=== PATIENT | female | born 1985 | race Caucasian/White ===

== ENCOUNTER 2017-09-14 04:46 | Emergency (ER) | payer OTHER, MEDICAID, SELFPAY ==
--- NOTE | 2017-09-14 04:54 | DI.RAD.S_ITS ---
PROCEDURE: XR CHEST 2V INDICATIONS: Shortness of breath TECHNIQUE: 2 views of the chest were acquired. COMPARISON: None. FINDINGS: Surgical changes and devices: None. Lungs and pleura: No pleural effusions or pneumothorax. Bilateral prominent perihilar interstitial pulmonary opacities. Mediastinum: Mediastinal contours are normal. Heart size is normal. Bones and chest wall: No suspicious bony abnormalities. Soft tissues appear unremarkable. IMPRESSION: Bilateral predominately perihilar interstitial pulmonary opacities may represent infection or edema. No enlargement of the heart or pleural effusions. Dictated by: Rommel Horne M.D. on 09/14/2017 at 7:36 Approved by: Rommel Horne M.D. on 09/14/2017 at 7:37
[2017-09-14 04:55] VITALS: BP 134/91; PULSE 120; RESP 20; TEMP 36.7; O2SAT 96
[2017-09-14] MEDS: DEXAMETHASONE 10 MG/ML VIAL PO (05:26)
--- NOTE | 2017-09-14 05:26 | ED.SOB ---
HPI - SOB/Dyspnea General Chief Complaint: Shortness of Breath/Dyspnea Stated Complaint: Difficulty breathing since yesterday Time Seen by Provider: 09/14/17 04:48 Source: patient Mode of arrival: ambulatory Limitations: no limitations History of Present Illness 32-year-old female here of shortness of breath. Patient states that approximately 1 o'clock yesterday afternoon (approximately 18 hr prior to her evaluation here in the emergency department) she started having shortness of breath. She states she can take a deep breath but when she does this she coughs. She states that it ???hurts ???to take a deep breath. She states she has had issues like this in the past when she has been around cleaning chemicals. 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 She also states that she has a history of allergies however this year it has been watery and itchy eyes. She does take occasional Benadryl. Patient also states that she has a history of anxiety and panic attacks and she does state that this feels like a panic attack however did not think that that is what was going on because it has lasted so long. Related Data Previous Rx's Medication Instructions Recorded albuterol sulfate 1 puff INHALATION Q4-6H PRN #6.7 09/14/17 gram dexamethasone 12 mg PO .x1 #3 tab 09/14/17 Allergies Allergy/AdvReac Type Severity Reaction Status Date / Time Penicillins [PENICILLINS] Allergy Unknown Verified 09/09/17 11:31 Sulfa (Sulfonamide Allergy Unknown Verified 09/09/17 11:31 Antibiotics) [SULFA (SULFONAMIDE ANTIBIOTICS)] Review of Systems Constitutional Denies chills, Denies fever(s), Denies lethargy and Denies weakness Cardiovascular Denies chest pain, Denies irregular heart rhythm, Denies lightheadedness, Denies palpitations, Reports dyspnea, Denies dyspnea on exertion and Denies orthopnea Respiratory Reports cough, Denies excessive phlegm production, Reports pain on inspiration, Reports pain with cough, Reports dyspnea, Denies dyspnea on exertion, Denies stridor and Denies wheezing Gastrointestinal Gastrointestinal: Denies abdominal pain, Denies change in bowel habits, Denies diarrhea, Denies nausea and Denies vomiting Musculoskeletal Denies back pain, Denies muscle weakness, Denies numbness and Denies tingling Integumentary/Breasts Denies pruritus, Denies erythema, Denies rash and Denies wounds Neurologic Denies numbness, Denies tingling and Denies weakness Endocrine Denies palpitations Hematologic/Lymphatic Denies easy bruising Allergic/Immunologic Denies wheezing [facility] Surgical History Status post delivery Status post tubal ligation Social History Smoking Status: Current every day smoker MDM - SOB/Dyspnea MDM Narrative Medical decision making narrative: Patient is not hypoxic. However was in a very mild respiratory distress and after talking with the patient seen that she had quite a bit of anxiety related to her presenting symptoms. She was given a nebulizer treatment here in the ER which she says may have improved her symptoms somewhat. She was also given Decadron. Also gave her an oral Ativan which she states did calm her down quite a bit and did improve the majority of her symptoms. Heart rate improved. No signs of pneumonia. Will send home with an albuterol inhaler and a prescription for Decadron to taken 36 hr. She was given return precautions. She expressed understanding and agreement with plan Imaging Data Chest x-ray: My impression: Normal size heart No focal consolidation No pneumothorax Course Orders Ordered: ED Orders 09/14/17 04:54 XR chest 2V Stat Discontinued Medications Albuterol (Ventolin) 2.5 mg INH NOW ONE Stop: 09/14/17 05:17 Last Admin: 09/14/17 05:29 Dose: 2.5 mg Dexamethasone (Decadron) 10 mg PO NOW ONE Stop: 09/14/17 05:17 Last Admin: 09/14/17 05:26 Dose: 10 mg Lorazepam (Ativan) 1 mg PO NOW ONE Stop: 09/14/17 05:17 Lorazepam (Ativan) 0.5 mg PO NOW ONE Stop: 09/14/17 05:31 Last Admin: 09/14/17 05:36 Dose: 0.5 mg Lorazepam (Ativan) 0.5 mg PO NOW ONE Stop: 09/14/17 05:34 Last Admin: 09/14/17 05:36 Dose: 0.5 mg Last Vital Signs Temp 98.1 F 09/14/17 04:55 Pulse 84 09/14/17 06:24 Resp 16 09/14/17 06:24 BP 134/91 H 09/14/17 04:55 Pulse Ox 96 09/14/17 06:24 Discharge Plan Departure Patient Disposition: Home, Self-Care Clinical Impression: Mild shortness of breath Instructions: DI for Shortness of Breath Activity Restrictions/Additional Instructions: Take all the medications as instructed. Contact your primary care doctor for a follow-up. Return to the emergency department for any new or worsening symptoms Prescriptions: New dexamethasone 4 mg tablet 12 mg PO .x1 Qty: 3 RF: 0 albuterol sulfate 90 mcg/actuation HFA aerosol inhaler 1 puff INHALATION Q4-6H PRN (Reason: shortness of breath) Qty: 6.7 RF: 0
[2017-09-14] MEDS: ALBUTEROL 2.5 MG/3 ML NEB INH (05:29)
[2017-09-14] MEDS: LORazepam 0.5 MG TABLET PO ×2 (05:36)
[2017-09-14 06:24] VITALS: PULSE 84; RESP 16; O2SAT 96
[2017-09-14 06:44] VITALS: BP 138/88; PULSE 92; RESP 18; O2SAT 98
== END 2017-09-14 06:44 | disposition home or self-care (01) ==
PROVIDERS: Emergency Provider Emergency Medicine
DX: R06.02 Shortness of breath (principal)
CPT/HCPCS: 71046; 94640; 99282; 99283; J1100; J7613

== ENCOUNTER 2017-09-17 12:19 | Emergency (ER) | payer OTHER, MEDICAID, SELFPAY ==
--- NOTE | 2017-09-17 12:26 | ED.ABDPAIN ---
HPI - Abdominal Pain General Chief Complaint: Neuro Symptoms/Deficit Stated Complaint: feeling faint, trouble breathing Time Seen by Provider: 09/17/17 12:23 Source: patient Mode of arrival: ambulatory Limitations: no limitations History of Present Illness HPI narrative: 32-year-old female here for evaluation of which she describes as her head feeling foggy. Patient states that yesterday she started having feeling like the left side of her head was ???shutting down??? she was seen here in the emergency department several days ago by myself for respiratory symptoms and was sent home with Decadron and an albuterol inhaler. She states that all of these symptoms have resolved. She states that she did take the 2nd dose of Decadron on Saturday evening. Her presenting symptoms today started yesterday. She denies any headaches. Denies any other neurologic symptoms to include upper and lower extremity symptoms. Denies any nausea vomiting. States she does have a history of headaches does not have a headache now. Denies any other new medications. Related Data Home Medications Medication Instructions Recorded Confirmed inhalational spacing device 09/17/17 09/17/17 [Aerochamber Plus Flow-Vu] Previous Rx's Medication Instructions Recorded albuterol sulfate 1 puff INHALATION Q4-6H PRN #6.7 09/14/17 gram Allergies Allergy/AdvReac Type Severity Reaction Status Date / Time Penicillins [PENICILLINS] Allergy Unknown Verified 09/09/17 11:31 Sulfa (Sulfonamide Allergy Unknown Verified 09/09/17 11:31 Antibiotics) [SULFA (SULFONAMIDE ANTIBIOTICS)] Review of Systems Constitutional Denies chills, Denies fever(s), Denies lethargy and Denies weakness Eyes Denies change in vision, Denies eye discharge, Denies irritation and Denies loss of vision Cardiovascular Denies chest pain, Denies irregular heart rhythm, Denies lightheadedness, Denies palpitations, Denies dyspnea, Denies dyspnea on exertion and Denies orthopnea Respiratory Denies cough, Denies dyspnea, Denies dyspnea on exertion and Denies wheezing Musculoskeletal Denies back pain, Denies muscle weakness, Denies numbness and Denies tingling Integumentary/Breasts Denies pruritus, Denies erythema, Denies rash and Denies wounds Neurologic Denies loss of vision, Denies numbness, Denies tingling and Denies weakness Endocrine Denies palpitations Allergic/Immunologic Denies wheezing PFSH Social History Smoking Status: Current every day smoker Exam Const General: cooperative and well developed Nutritional Appearance: well nourished Orientation: alert, awake, oriented x3 and not confused [facility] Head: normocephalic and atraumatic Ears: external ears normal and TM's normal bilaterally Nose: external nose normal and No nasal discharge Face and sinus: sinuses nontender, face symmetric, no sinus tenderness and No dry mucous membranes Mouth: oral mucosae normal and moist mucous membranes Teeth and gingiva: dentition normal Throat: tonsils normal and uvula midline Eyes General: appearance normal, both eyes and all related structures Eyelids: eyelids normal Conjunctivae: conjunctivae normal Sclera: sclerae normal Pupils: PERRL EOM: EOM intact bilaterally Cardio Rate: regular rate Rhythm: regular rhythm Heart Sounds: no click, no gallops, no murmurs and no rubs Pulses: normal peripheral pulses GI Inspection: non-distended Palpation: soft, no hepatosplenomegaly, No guarding, No pulsatile mass and No tender Auscultation: normal bowel sounds Skin General: no rashes or lesions noted, No jaundice and No petechiae Neuro General: alert, oriented x3, gait normal and no focal motor deficits Cranial Nerves: CN's II-XI intact bilaterally Speech: speech normal Motor: strength 5/5 throughout Sensory Exam: no sensory deficits noted Extrem General: full ROM, no clubbing, cyanosis or edema, no pedal edema and no calf tenderness Course Orders Ordered: ED Orders 09/17/17 12:30 CT head/brain wo con Stat Last Vital Signs Temp 98.2 F 09/17/17 12:33 Pulse 58 L 09/17/17 12:33 Resp 20 09/17/17 12:33 BP 141/96 H 09/17/17 12:33 Pulse Ox 99 09/17/17 12:33 MDM - Abdominal Pain MDM Narrative Medical decision making narrative: Head CT negative. Patient with a normal neurologic exam here in the ER. No objective findings found on exam. I have some suspicion that her symptoms today may be the result of the Decadron that she took Saturday night. This should be wearing off within the next 12 hr. Will hold on any further workup for now. Again had a discussion with the patient that she needed to find a primary care doctor for a follow-up in to discuss further evaluation to potentially include an MRI. She expressed understanding and agreement with plan Imaging Data CT scan - head: Radiologist's impression: PROCEDURE: CT HEAD/BRAIN WO CON INDICATIONS: Head feels foggy TECHNIQUE: Noncontrast 4.5 mm thick angled axial sections acquired from the foramen magnum to the vertex, with coronal and sagittal reformats. For radiation dose reduction, the following was used: automated exposure control, adjustment of mA and/or kV according to patient size. COMPARISON: None. FINDINGS: Image quality: Excellent. CSF spaces: Basal cisterns are patent. No extra-axial fluid collections. Ventricles are normal in size and shape. Brain: No midline shift. No intracranial masses or hemorrhage. Wood-white matter interface is normal. Skull and face: Calvarium and visualized facial bones are intact, without suspicious lesions. Sinuses: Visualized sinuses and mastoids are clear. IMPRESSION: Unremarkable head CT. No acute intracranial hemorrhage. Dictated by: Rafy Huggins M.D. on 09/17/2017 at 11:46 Discharge Plan Departure Patient Disposition: Home, Self-Care Clinical Impression: Normal physical exam Activity Restrictions/Additional Instructions: Recommend that you make contact with the primary care doctor for follow-up to discuss further workup of her symptoms today. Return to the emergency department for any new or worsening symptoms Prescriptions: No Action inhalational spacing device [Aerochamber Plus Flow-Vu] spacer RF: 0 albuterol sulfate 90 mcg/actuation HFA aerosol inhaler 1 puff INHALATION Q4-6H PRN (Reason: shortness of breath) Qty: 6.7 RF: 0
--- NOTE | 2017-09-17 12:30 | DI.CT.S_ITS ---
PROCEDURE: CT HEAD/BRAIN WO CON INDICATIONS: Head feels foggy TECHNIQUE: Noncontrast 4.5 mm thick angled axial sections acquired from the foramen magnum to the vertex, with coronal and sagittal reformats. For radiation dose reduction, the following was used: automated exposure control, adjustment of mA and/or kV according to patient size. COMPARISON: None. FINDINGS: Image quality: Excellent. CSF spaces: Basal cisterns are patent. No extra-axial fluid collections. Ventricles are normal in size and shape. Brain: No midline shift. No intracranial masses or hemorrhage. Wood-white matter interface is normal. Skull and face: Calvarium and visualized facial bones are intact, without suspicious lesions. Sinuses: Visualized sinuses and mastoids are clear. IMPRESSION: Unremarkable head CT. No acute intracranial hemorrhage. Dictated by: Rafy Huggins M.D. on 09/17/2017 at 11:46 Approved by: Rafy Huggins M.D. on 09/17/2017 at 11:47
[2017-09-17 12:33] VITALS: BP 141/96; PULSE 58; RESP 20; TEMP 36.8; O2SAT 99; BMI 32.6
[2017-09-17 14:18] VITALS: BP 126/91; PULSE 58; RESP 12; O2SAT 100
== END 2017-09-17 14:23 | disposition home or self-care (01) ==
PROVIDERS: Emergency Provider Emergency Medicine
DX: Z71.1 Person with feared health complaint in whom no diagnosis is made (principal)
CPT/HCPCS: 70450; 99282; 99284; 99291

== ENCOUNTER 2017-10-11 16:02 | Emergency (ER) | payer OTHER, MEDICAID, SELFPAY ==
[2017-10-11 16:09] VITALS: BP 158/100; PULSE 90; RESP 20; TEMP 36.9; O2SAT 100; BMI 32.6
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
[2017-10-11] MEDS: CYCLOBENZAPRINE 10 MG TABLET PO (16:59)
[2017-10-11] MEDS: IBUPROFEN 400 MG TABLET 800 MG PO (16:59)
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
[2017-10-11 17:51] VITALS: BP 145/99; PULSE 79; RESP 14; O2SAT 100
== END 2017-10-11 17:52 | disposition home or self-care (01) ==
PROVIDERS: Emergency Provider Internal Medicine
DX: S16.1XXA Strain of muscle, fascia and tendon at neck level, initial encounter (principal); S00.93XA Contusion of unspecified part of head, initial encounter; S60.222A Contusion of left hand, initial encounter; V49.40XA Driver injured in collision with unspecified motor vehicles in traffic accident, initial encounter
CPT/HCPCS: 99283

== ENCOUNTER → 2017-10-23 16:18 | Outpatient (CLI) | payer OTHER, MEDICAID, SELFPAY ==
--- NOTE | 2017-10-23 16:28 | DI.RAD.S_ITS ---
PROCEDURE: XR CERVICAL SPINE 2V OR 3V INDICATIONS: SPRAIN OF LIGAMENTS OF CERVICAL SPINE TECHNIQUE: 3 view(s) of the cervical spine were acquired. COMPARISON: None. FINDINGS: Bones: No fractures or dislocations to the T1 level. The lateral masses of C1 appear intact on the odontoid view. No suspicious bony lesions. Loss of lordosis which could be related to muscle spasm, rigidity or simply positional. Soft tissues: No prevertebral soft tissue swelling. IMPRESSION: Loss of lordosis otherwise normal C-spine. Dictated by: Maxi Mejia [facility] Interpreted: Kira Davis MD on 10/23/2017 at 16:49 Approved by: Kira Davis MD, PhD on 10/23/2017 at 16:56
== END ==
PROVIDERS: Visit Provider Chiropractor
DX: S13.4XXA Sprain of ligaments of cervical spine, initial encounter (principal)
CPT/HCPCS: 72040

== ENCOUNTER → 2017-11-26 11:29 | Outpatient (CLI) | payer OTHER, MEDICAID, SELFPAY ==
[2017-11-26 12:30] LABS: Add Manual Diff / Slide Review NO; Eosinophils Percent Auto 2.7 % (2-4); Hematocrit 44.9 % (36-46); Hemoglobin 15.8 g/dL (12.0-16.0); Lymphocytes Percent Auto 27.4 % (25-40); Mean Corpuscular HGB Conc 35.1 % (30-36); Mean Corpuscular Hemoglobin 32.3 PG (26-34); Mean Corpuscular Volume 91.9 fL (80-100); Neutrophils Absolute Auto 4700 /uL (3000-5900); Neutrophils Percent Auto 62.9 % (50-75); Platelet Count 205 X10^3/uL (150-400); Red Blood Cell Count 4.89 X10^6/uL (4.0-5.2); Red Cell Distribution Width 13.3 % (11.6-14.8); White Blood Cell Count 7.4 X10^3/uL (4.5-11.0)
[2017-11-26 13:00] LABS: Alanine Aminotransferase 30 IU/L (9-52); Albumin 4.3 g/dL (3.5-5.0); Albumin Globulin Ratio 1.4 (1.0-2.8); Alkaline Phosphatase 85 U/L (38-126); Aspartate Aminotransferase 28 IU/L (14-36); BUN Creatinine Ratio 17.1 (6-22); Bilirubin Total 0.6 mg/dL (0.2-1.3); Blood Urea Nitrogen 12 mg/dL (7-17); C-Reactive Protein Quant 0.8 mg/dL (<1.0); Calcium 9.1 mg/dL (8.4-10.2); Carbon Dioxide 26 mmol/L (22-32); Chloride 104 mmol/L (98-107); Cholesterol 170 mg/dL (140-199); Estimated Glomerular Filt Rate > 60.0 mL/min (>60); Glucose 90 mg/dL (70-100); HDL Cholesterol 44 mg/dL (40-60); HEMOLYSIS < 15 (0-50); LDL Cholesterol Calculated 99 mg/dL (<100); Lipase 36 U/L (23-300); Sodium 139 mmol/L (137-145); Total Protein 7.3 g/dL (6.3-8.2); Triglycerides 137 mg/dL (35-150)
[2017-11-26 13:11] LABS: HEMOLYSIS < 15 (0-50); Iron 100 ug/dL (37-170)
[2017-11-26 13:16] LABS: Free T4, Direct Thyroxine 1.11 ng/dL (0.78-2.19)
[2017-11-26 13:22] LABS: Percent Iron Saturation 27 % (15-50); Total Iron Binding Capacity 373 ug/dL (265-497); Transferrin 308 mg/dL (206-381)
[2017-11-26 13:30] LABS: Thyroid Stimulating Hormone 2.18 uIU/mL (0.47-4.68)
[2017-11-26 13:34] LABS: Erythrocyte Sedimentation Rate 2 MM/HR (0-20)
[2017-11-26 13:44] LABS: Vitamin B12 359 pg/mL (239-931)
[2017-11-26 15:07] LABS: Vitamin D 25 Hydroxy (D3) 28.2 ng/mL (30.0-100.0)
== END ==
PROVIDERS: PCP Nurse Practitioner Family; Visit Provider Nurse Practitioner Family
DX: R19.7 Diarrhea, unspecified (principal); R10.9 Unspecified abdominal pain; R53.83 Other fatigue; L65.9 Nonscarring hair loss, unspecified; E28.2 Polycystic ovarian syndrome
CPT/HCPCS: 36415; 80053; 80061; 82306; 82607; 83540; 83550; 83690; 84439; 84443; 85025; 85651; 86140

== ENCOUNTER 2017-12-18 10:39 | Emergency (ER) | payer OTHER, MEDICAID, SELFPAY ==
[2017-12-18 10:48] VITALS: BP 186/109; PULSE 92; RESP 20; TEMP 37.2; O2SAT 100
--- NOTE | 2017-12-18 11:14 | ED_ITS ---
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 She was getting a routine I would check and blood pressure noted to be 168 systolic in the office, she was sent here as the result. She does have a history of elevated blood pressure but is not prescribed any medications. She does admit to a headache but denies any blurred vision, worse than normal, chest pain, shortness of breath, abdominal pain or other symptoms such as numbness, tingling or weakness. Related Data Home Medications Medication Instructions Recorded Confirmed inhalational spacing device 09/17/17 12/18/17 [Aerochamber Plus Flow-Vu] ergocalciferol (vitamin D2) 1 cap PO MOTH 12/18/17 12/18/17 [Vitamin D2] Previous Rx's Medication Instructions Recorded albuterol sulfate 1 puff INHALATION Q4-6H PRN #6.7 09/14/17 gram lisinopril 20 mg PO DAILY #30 tab 12/18/17 Allergies Allergy/AdvReac Type Severity Reaction Status Date / Time Penicillins [PENICILLINS] Allergy Unknown Hives Verified 10/11/17 16:15 Sulfa (Sulfonamide Allergy Unknown Hives Verified 10/11/17 16:15 Antibiotics) [SULFA (SULFONAMIDE ANTIBIOTICS)] Review of Systems Review of Systems All systems reviewed & are unremarkable except as noted in HPI and below Constitutional Denies chills, Denies fever(s), Reports headache(s), Denies lethargy and Denies weakness Eyes Denies change in vision, Denies eye discharge, Denies irritation and Denies loss of vision ENT Ears, Nose, Mouth, and Throat: Denies change in voice, Reports headache(s), Denies neck pain and Denies sore throat Cardiovascular Denies chest pain, Denies irregular heart rhythm, Denies lightheadedness, Denies palpitations, Denies dyspnea, Denies dyspnea on exertion and Denies orthopnea Respiratory Denies cough, Denies dyspnea, Denies dyspnea on exertion and Denies wheezing Gastrointestinal Gastrointestinal: Denies abdominal pain, Denies change in bowel habits, Denies diarrhea, Denies nausea and Denies vomiting Genitourinary Denies hematuria, Denies flank pain, Denies urinary incontinence and Denies urinary urgency Musculoskeletal Denies neck pain Integumentary/Breasts Denies pruritus, Denies erythema, Denies rash and Denies wounds Neurologic Denies confusion, Reports headache(s), Denies loss of vision and Denies weakness Psychiatric Denies anxiety, Denies confusion, Denies depression, Denies homicidal ideation and Denies suicidal ideation Endocrine Denies palpitations Hematologic/Lymphatic Denies easy bruising Allergic/Immunologic Denies wheezing [facility] Medical History Asthma (Chronic) History of renal stone (Chronic) Surgical History History of extraction of renal calculus (Resolved) Status post delivery Status post tubal ligation Social History Smoking Status: Current every day smoker Exam Initial Vital Signs Initial Vital Signs: Vital Signs Temperature 99 F 12/18/17 10:48 Pulse Rate 92 H 12/18/17 10:48 Respiratory Rate 20 12/18/17 10:48 Blood Pressure 186/109 H 12/18/17 10:48 Pulse Oximetry 100 12/18/17 10:48 Const General: cooperative and well developed Nutritional Appearance: well nourished Orientation: alert, awake, oriented x3 and not confused [facility] Head: normocephalic and atraumatic Ears: external ears normal and TM's normal bilaterally Nose: external nose normal and No nasal discharge Face and sinus: sinuses nontender, face symmetric, no sinus tenderness and No dry mucous membranes Mouth: oral mucosae normal and moist mucous membranes Teeth and gingiva: dentition normal Throat: tonsils normal and uvula midline Eyes General: appearance normal, both eyes and all related structures Eyelids: eyelids normal Conjunctivae: conjunctivae normal Sclera: sclerae normal Pupils: PERRL EOM: EOM intact bilaterally Neck Neck: normal visual inspection, trachea midline, No lymphadenopathy, No midline deformity and No JVD Lymphatic: No lymphedema Chest Chest: normal inspection of the chest Resp Effort & Inspection: normal respiratory effort, able to speak in complete sentences, no respiratory distress and no use of accessory muscles Auscultation: clear to auscultation bilaterally, no rales, no rhonchi and no wheezes Cardio Rate: regular rate Rhythm: regular rhythm Heart Sounds: no click, no gallops, no murmurs and no rubs Pulses: normal peripheral pulses GI Inspection: non-distended Palpation: soft, no hepatosplenomegaly, No guarding, No pulsatile mass and No tender Auscultation: normal bowel sounds Back/Spine/Pelvis Back: No CVA tenderness Cervical Spine: cervical ROM normal and No pain with cervical ROM Thoracic/Lumbar Spine: thoracic and lumbar spine normal to inspection Skin General: no rashes or lesions noted, No jaundice and No petechiae Neuro General: alert, oriented x3, gait normal and no focal motor deficits Speech: speech normal Extrem General: full ROM, no clubbing, cyanosis or edema, no pedal edema and no calf tenderness Psych Appearance: well kempt Mental Status: mental status grossly normal Attitude: cooperative Thought Content: normal and suicidality Judgment: judgment good Course Orders Ordered: ED Orders 12/18/17 11:12 XR chest 2V Stat EKG-12 Lead Stat 12/18/17 11:25 Basic Metabolic Panel Stat Vital Signs - 8 hr 12/18/17 10:48 12/18/17 11:30 12/18/17 12:53 Temperature 99 F Pulse Rate 92 H 61 Respiratory Rate 20 Blood Pressure 186/109 H Blood Pressure [Left Arm] 162/120 H 147/102 H Pulse Oximetry 100 99 97 Medical Decision Making MDM Narrative Medical decision making narrative: Blood pressure has improved over duration of visit. Labs, chest x-ray, EKG normal. Exam unremarkable, patient largely asymptomatic. Lab Data Result diagrams: 12/18/17 11:25 Lab Results 12/18/17 Range/Units 11:25 Sodium 138 (137-145) mmol/L Potassium 4.1 (3.4-5.1) mmol/L Chloride 105 (98-107) mmol/L Carbon Dioxide 23 (22-32) mmol/L BUN 15 (7-17) mg/dL Creatinine 0.60 (0.52-1.04) mg/dL Estimated GFR > 60.0 (>60) mL/min BUN/Creatinine Ratio 25.0 H (6-22) Glucose 87 (70-100) mg/dL Calcium 9.4 (8.4-10.2) mg/dL Imaging Data Chest x-ray: Radiologist's impression: PROCEDURE: XR CHEST 2V INDICATIONS: HYPERTENSION TECHNIQUE: 2 views of the chest were acquired. COMPARISON: [facility], CR, XR CHEST 2V, 09/14/2017, 4:37. FINDINGS: Surgical changes and devices: None. Lungs and pleura: No pleural effusions or pneumothorax. Lungs are clear. Mediastinum: Mediastinal contours are normal. Heart size is normal. Bones and chest wall: No suspicious bony abnormalities. Soft tissues appear unremarkable. IMPRESSION: No acute pulmonary process. Dictated by: Maria Dolores Khan M.D. on 12/18/2017 at 12:14 Approved by: Maria Dolores Khan M.D. on 12/18/2017 at 12:14 Discharge Plan Departure Patient Disposition: Home, Self-Care Clinical Impression: Hypertension Instructions: DI for High Blood Pressure Activity Restrictions/Additional Instructions: *You have been diagnosed with [ hypertension ] *What to do: *Take medications as directed: Lisinopril electronically transmitted to [facility] based your prior preference *Follow up with your primary care provider in 2-3 days, call for an appointment. Let them know you were seen in the Emergency Department and that we ask that you be seen in follow up *Return to ER if you should have any new, worsening or concerning symptoms Your blood pressure is slightly elevated and this can cause long-term health problems if not addressed appropriately. Please follow-up with your doctor to discuss your options Prescriptions: New lisinopril 20 mg tablet 20 mg PO DAILY Qty: 30 RF: 0 No Action inhalational spacing device [Aerochamber Plus Flow-Vu] spacer RF: 0 albuterol sulfate 90 mcg/actuation HFA aerosol inhaler 1 puff INHALATION Q4-6H PRN (Reason: shortness of breath) Qty: 6.7 RF: 0 ergocalciferol (vitamin D2) [Vitamin D2] 50,000 unit capsule 1 cap PO MOTH RF: 0
[2017-12-18 11:30] VITALS: BP 162/120; O2SAT 99
--- NOTE | 2017-12-18 11:39 | PC.NURSE ---
Pt has reported having higher blood pressures before but not as high as today. [facility] appt [facility] and had high bp at appt. was sent here due to high bp
[2017-12-18 11:54] LABS: Blood Urea Nitrogen 15 mg/dL (7-17); Calcium 9.4 mg/dL (8.4-10.2); Carbon Dioxide 23 mmol/L (22-32); Chloride 105 mmol/L (98-107); Estimated Glomerular Filt Rate > 60.0 mL/min (>60); Glucose 87 mg/dL (70-100); HEMOLYSIS 18 (0-50); Potassium 4.1 mmol/L (3.4-5.1); Sodium 138 mmol/L (137-145)
[2017-12-18 12:53] VITALS: BP 147/102; PULSE 61; O2SAT 97
[2017-12-18 13:32] VITALS: PULSE 70; RESP 18; O2SAT 99
[2017-12-18 13:38] VITALS: BP 156/98; PULSE 75; RESP 15; O2SAT 99
== END 2017-12-18 13:39 | disposition home or self-care (01) ==
PROVIDERS: Emergency Provider Emergency Medicine; PCP Nurse Practitioner Family
DX: I10 Essential (primary) hypertension (principal)
CPT/HCPCS: 36591; 71046; 80048; 93005; 93010; 99283; 99285

== ENCOUNTER → 2018-01-16 13:12 | Outpatient (CLI) | payer OTHER, MEDICAID, SELFPAY ==
[2018-01-16 14:51] LABS: Amylase 51 U/L (30-110); Lipase 58 U/L (23-300)
[2018-01-20 23:06] LABS: (tTG) Ab, IgA < 1 U/mL
== END ==
PROVIDERS: PCP Nurse Practitioner Family; Visit Provider Nurse Practitioner Family
DX: R10.11 Right upper quadrant pain (principal); R19.4 Change in bowel habit
CPT/HCPCS: 36415; 82150; 83516; 83690; 86255

== ENCOUNTER 2018-01-26 13:55 | Emergency (ER) | payer OTHER, MEDICAID, SELFPAY ==
[2018-01-26 14:02] VITALS: BP 172/110; PULSE 93; RESP 18; TEMP 36.7; O2SAT 100; BMI 32.1
[2018-01-26 14:33] VITALS: BP 164/99; PULSE 85; RESP 24; O2SAT 97
--- NOTE | 2018-01-26 14:40 | DI.RAD.S_ITS ---
PROCEDURE: XR CHEST 2V INDICATIONS: chest pain/nausea TECHNIQUE: 2 views of the chest were acquired. COMPARISON: [facility], CR, XR CHEST 2V, 12/18/2017, 11:24. FINDINGS: Surgical changes and devices: None. Lungs and pleura: No pleural effusions or pneumothorax. Lungs are clear. Mediastinum: Mediastinal contours are normal. Heart size is normal. Bones and chest wall: No suspicious bony abnormalities. Soft tissues appear unremarkable. IMPRESSION: No acute cardiopulmonary disease process. Dictated by: Kira Davis MD, PhD on 01/26/2018 at 14:54 Approved by: Kira Davis MD, PhD on 01/26/2018 at 14:55
--- NOTE | 2018-01-26 14:42 | PC.NURSE ---
pt reports 3 days of palpatations, lt side chest pain, lt arm tingling, nausea, denies palliation/provocation, states she stopped her blood pressure and anxiety medications 1 week ago r/t made me feel gross, she discussed this with her PCP, she does not recall the name of the medications. At rest during exam she reports her lt side cp and palpations unchanged x3 days, NSR on monitor without ectopy, lungs clear, skin warm/pink/dry, appears well, speaking in full sentences
[2018-01-26 15:02] LABS: Add Manual Diff / Slide Review NO; Basophils Percent Auto 1.3 % (0-2); Eosinophils Percent Auto 2.9 % (2-4); Hematocrit 43.1 % (36-46); Hemoglobin 15.2 g/dL (12.0-16.0); Lymphocytes Percent Auto 26.5 % (25-40); Mean Corpuscular HGB Conc 35.4 % (30-36); Mean Corpuscular Hemoglobin 32.7 PG (26-34); Mean Corpuscular Volume 92.6 fL (80-100); Neutrophils Absolute Auto 5000 /uL (3000-5900); Neutrophils Percent Auto 63.3 % (50-75); Platelet Count 205 X10^3/uL (150-400); Red Blood Cell Count 4.66 X10^6/uL (4.0-5.2); White Blood Cell Count 7.8 X10^3/uL (4.5-11.0)
[2018-01-26 15:08] LABS: Prothrombin Time 10.8 SECONDS (10.1-12.7)
--- NOTE | 2018-01-26 15:08 | ED.ARRPALP ---
HPI - Arrhythmia/Palpitations <ANJUM Lundberg - Last Filed: 01/26/18 18:10> General Chief Complaint: Arrhythmia/Palpitations Stated Complaint: heart palpitations, high bp Time Seen by Provider: 01/26/18 14:41 Source: patient Mode of arrival: ambulatory Limitations: no limitations History of Present Illness HPI narrative: Patient presents with chief complaint palpitations that have been almost 10 times every day. She states she has 1-2 seconds of chest pain after each episode of palpitations. She states that the chest pain is shooting on the left side of her chest and radiates down her arm. She states that this only happens after palpitations. She denies any swelling of her extremities, lightheadedness dizziness, nausea vomiting fever diarrhea in her symptoms. She denies any syncope. She states that she was started on 3 to for medication several weeks ago by her primary care. She states that this was 2 to for blood pressure medications as well as 1 anti anxiety medication. However she stopped taking all 3 of them 1 week ago because she did not feel normal. She denies any headache. Related Data Home Medications Medication Instructions Recorded Confirmed inhalational spacing device 09/17/17 12/18/17 [Aerochamber Plus Flow-Vu] ergocalciferol (vitamin D2) 1 cap PO MOTH 12/18/17 12/18/17 [Vitamin D2] Previous Rx's Medication Instructions Recorded albuterol sulfate 1 puff INHALATION Q4-6H PRN #6.7 09/14/17 gram lisinopril 20 mg PO DAILY #30 tab 12/18/17 Allergies Allergy/AdvReac Type Severity Reaction Status Date / Time Penicillins [PENICILLINS] Allergy Unknown Hives Verified 10/11/17 16:15 Sulfa (Sulfonamide Allergy Unknown Hives Verified 10/11/17 16:15 Antibiotics) [SULFA (SULFONAMIDE ANTIBIOTICS)] Review of Systems <ANJUM Lundberg - Last Filed: 01/26/18 18:10> Review of Systems GENERAL: Denies chills, fatigue, malaise, fever, sweats. HEENT: Denies sinus pain, ear pain, sore throat, difficulty swallowing, dizziness. RESPIRATORY: Denies dyspnea, cough, wheezing, hemoptysis, sputum. CARDIOVASCULAR: See HPI GASTROINTESTINAL: Denies nausea, vomiting, abdominal pain, diarrhea, constipation, melena. : Denies dysuria, frequency, incontinence, hematuria, urinary retention. MUSCULOSKELETAL: denies weakness, joint pain, or bony pain SKIN: Denies rash, skin lesions, or other NEUROLOGIC: Denies weakness, headache, numbness, change in speech, confusion, seizures, incoordination. PSYCHIATRIC: No concerning psychosocial issues. 12 point review of systems is negative except for those stated above Exam <MIGUEL ANGEL Lundberg-BC - Last Filed: 01/26/18 18:10> Narrative Exam Narrative: GENERAL: This is a well-nourished, well-developed patient, lying on stretcher HEAD: Atraumatic. Normocephalic. No temporal or scalp tenderness. EYES: Pupils equal round and reactive. Extraocular motions intact. No scleral icterus. No injection or drainage. ENT: Nose without bleeding, purulent drainage or septal hematoma. Throat without erythema, tonsillar hypertrophy or exudate. Uvula midline. Airway patent. NECK: Trachea midline. No JVD or lymphadenopathy. Supple, nontender, no meningeal signs. CARDIOVASCULAR: Regular rate and rhythm without murmurs, gallops, or rubs. RESPIRATORY: Clear to auscultation. Breath sounds equal bilaterally. No wheezes, rales, or rhonchi. GASTROINTESTINAL: Abdomen soft, non-tender, nondistended. No hepato-splenomegaly, or palpable masses. No guarding. EXTREMITIES: No clubbing, cyanosis, or edema. No joint tenderness, effusion, or edema noted. BACK: Nontender without deformity or crepitance. No flank tenderness. NEURO: AOx3. SKIN: No rash or erythema. Initial Vital Signs Initial Vital Signs: Vital Signs Temperature 98.0 F 01/26/18 14:02 Pulse Rate 93 H 01/26/18 14:02 Respiratory Rate 18 01/26/18 14:02 Blood Pressure 172/110 H 01/26/18 14:02 Pulse Oximetry 100 01/26/18 14:02 <Génesis Garcia DO - Last Filed: 01/30/18 20:08> Initial Vital Signs Initial Vital Signs: Vital Signs Temperature 98.0 F 01/26/18 14:02 Pulse Rate 93 H 01/26/18 14:02 Respiratory Rate 18 01/26/18 14:02 Blood Pressure 172/110 H 01/26/18 14:02 Pulse Oximetry 100 01/26/18 14:02 Scores <ANJUM Lundberg - Last Filed: 01/26/18 18:10> HEART Score Heart Score history: Slightly Suspicious Heart Score EKG: Normal Heart Score Age: < 45 years old Heart Score risk factors: 1-2 risk factors Heart Score troponin: < or = to normal limit Heart Score Total: 1 PERC Score Age greater than or equal to 50 years: No Heart rate greater than or equal to 100 bpm: No Room Air O2 Sat less than 95%: No Unilateral leg swelling: No Recent trauma or surgery: No Hemoptysis: No Prior PE or DVT: No Hormone Use: No Total PERC Score: 0 Course <ANJUM Lundberg - Last Filed: 01/26/18 18:10> Orders Ordered: ED Orders 01/26/18 14:40 Chest [XR chest 2V] Stat 01/26/18 14:55 CBC [Complete Blood Count AUTO DIFF] Stat CMP [Comprehensive Metabolic Panel] Stat Prothrombin Time INR Stat Troponin & CK Cardiac Panel Stat Reevaluation(s) Reevaluation #1: Patient lying on stretcher. States she feels about the same. Patient is trying contact her mother to find out what medication she was supposed to be taking. Time: 16:20 Reevaluation #2: Patient states that she was supposed to be taking propanolol. Discussed at length that taking 1 self off propanolol can lead to palpitations as it is a beta-willow that helps control heart rate. Offered to keep patient for 2nd troponin rule out, but patient declined at this point time states that she wants to go home with PCP follow-up. Time: 16:50 Vital Signs - 8 hr 01/26/18 14:02 01/26/18 14:33 01/26/18 16:02 Temperature 98.0 F Pulse Rate 93 H 85 63 Respiratory Rate 18 24 22 Blood Pressure 172/110 H Blood Pressure [Right Arm] 164/99 H 142/99 H Pulse Oximetry 100 97 96 01/26/18 17:06 Temperature Pulse Rate 72 Respiratory Rate 14 Blood Pressure Blood Pressure [Right Arm] 131/95 H Pulse Oximetry 99 <Génesis Garcia DO - Last Filed: 01/30/18 20:08> Orders Ordered: ED Orders 01/26/18 14:40 Chest [XR chest 2V] Stat 01/26/18 14:55 CBC [Complete Blood Count AUTO DIFF] Stat CMP [Comprehensive Metabolic Panel] Stat Prothrombin Time INR Stat Troponin & CK Cardiac Panel Stat Vital Signs - 8 hr 01/26/18 14:02 01/26/18 14:33 01/26/18 16:02 Temperature 98.0 F Pulse Rate 93 H 85 63 Respiratory Rate 18 24 22 Blood Pressure 172/110 H Blood Pressure [Right Arm] 164/99 H 142/99 H Pulse Oximetry 100 97 96 01/26/18 17:06 Temperature Pulse Rate 72 Respiratory Rate 14 Blood Pressure Blood Pressure [Right Arm] 131/95 H Pulse Oximetry 99 MDM - Arrhythmia/Palpitations <MIGUEL ANGEL Lundberg-BC - Last Filed: 01/26/18 18:10> Differential Diagnosis Differential diagnosis: Likely palpitations, anxiety, sinus tachycardia, artial fibrillation and artial flutter Lab Data Result diagrams: 01/26/18 14:55 01/26/18 14:55 Lab Results 01/26/18 01/26/18 01/26/18 Range/Units 14:55 14:55 14:55 WBC 7.8 (4.5-11.0) X10^3/uL RBC 4.66 (4.0-5.2) X10^6/uL Hgb 15.2 (12.0-16.0) g/dL Hct 43.1 (36-46) % MCV 92.6 (80-100) fL MCH 32.7 (26-34) PG MCHC 35.4 (30-36) % RDW 13.0 (11.6-14.8) % Plt Count 205 (150-400) X10^3/uL Neut % (Auto) 63.3 (50-75) % Lymph % (Auto) 26.5 (25-40) % [place] % (Auto) 6.0 (3-14) % Eos % (Auto) 2.9 (2-4) % Baso % (Auto) 1.3 (0-2) % Neut # (Auto) 5000 (3765-4592) /uL PT (10.1-12.7) SECONDS INR (0.9-1.3) Sodium 143 (137-145) mmol/L Potassium 4.2 (3.4-5.1) mmol/L Chloride 105 (98-107) mmol/L Carbon Dioxide 26 (22-32) mmol/L BUN 16 (7-17) mg/dL Creatinine 0.90 (0.52-1.04) mg/dL Estimated GFR > 60.0 (>60) mL/min BUN/Creatinine Ratio 17.8 (6-22) Glucose 108 H (70-100) mg/dL Calcium 9.7 (8.4-10.2) mg/dL Total Bilirubin 0.4 (0.2-1.3) mg/dL AST 35 (14-36) IU/L ALT 33 (9-52) IU/L Alkaline Phosphatase 80 (38-126) U/L Total Creatine Kinase 51 (30-135) U/L Troponin I Cancelled < 0.012 Total Protein 7.1 (6.3-8.2) g/dL Albumin 4.2 (3.5-5.0) g/dL Globulin 2.9 (1.7-4.1) g/dL Albumin/Globulin Ratio 1.4 (1.0-2.8) // Range/Units 14:55 WBC (4.5-11.0) X10^3/uL RBC (4.0-5.2) X10^6/uL Hgb (12.0-16.0) g/dL Hct (36-46) % MCV (80-100) fL MCH (26-34) PG MCHC (30-36) % RDW (11.6-14.8) % Plt Count (150-400) X10^3/uL Neut % (Auto) (50-75) % Lymph % (Auto) (25-40) % [place] % (Auto) (3-14) % Eos % (Auto) (2-4) % Baso % (Auto) (0-2) % Neut # (Auto) (5302-7062) /uL PT 10.8 (10.1-12.7) SECONDS INR 1.0 (0.9-1.3) Sodium (137-145) mmol/L Potassium (3.4-5.1) mmol/L Chloride (98-107) mmol/L Carbon Dioxide (22-32) mmol/L BUN (7-17) mg/dL Creatinine (0.52-1.04) mg/dL Estimated GFR (>60) mL/min BUN/Creatinine Ratio (6-22) Glucose (70-100) mg/dL Calcium (8.4-10.2) mg/dL Total Bilirubin (0.2-1.3) mg/dL AST (14-36) IU/L ALT (9-52) IU/L Alkaline Phosphatase (38-126) U/L Total Creatine Kinase (30-135) U/L Troponin I Total Protein (6.3-8.2) g/dL Albumin (3.5-5.0) g/dL Globulin (1.7-4.1) g/dL Albumin/Globulin Ratio (1.0-2.8) Point of Care Testing Test Results Negative Urine Dip Bedside Urine Glucose Negative Bedside Urine Bilirubin - Negative Bedside Urine Ketone - Negative Urine Specific [place] 1.025 Bedside Urine Occult Blood - Negative Bedside Urine pH 6.0 Bedside Urine Protein - Negative Bedside Urine Urobilinogen - Negative Bedside Urine Nitrite - Negative Bedside Urine Leukocytes - Negative Esterase Imaging Data Chest x-ray: Radiologist's impression: [address] [address] XRay Report Signed Patient: Clau Barlow EMR#: [id number] : 1985Acct:[id number] Age/Sex: 32 / FDate of Service: 01/26/18 Loc: ED Accession Number: [id number] Procedure: XR chest 2V Ordering Provider: Génesis Cobb PROCEDURE: XR CHEST 2V INDICATIONS: chest pain/nausea TECHNIQUE: 2 views of the chest were acquired. COMPARISON: [facility], , XR CHEST 2V, 12/18/2017, 11:24. FINDINGS: Surgical changes and devices: None. Lungs and pleura: No pleural effusions or pneumothorax. Lungs are clear. Mediastinum: Mediastinal contours are normal. Heart size is normal. Bones and chest wall: No suspicious bony abnormalities. Soft tissues appear unremarkable. IMPRESSION: No acute cardiopulmonary disease process. Dictated by: Kira Davis MD, PhD on 01/26/2018 at 14:54 Approved by: Kira Davis MD, PhD on 01/26/2018 at 14:55 ECG Data Attestation: I personally reviewed and interpreted this ECG as follows: Prior ECG tracings: not available for review Interpretation: Sinus rhythm. Noted sinus arrhythmia. No ST elevation or depression. No ectopy noted. MDM Narrative Medical decision making narrative: Patient presents with chief complaint of palpitations and 1-2 seconds of chest pain after palpitations. Heart score and perc score were completed. Her EKG showed no acute abnormalities. She remained hemodynamically stable in the emergency department. She received and normal set of lab workup including CBC, CMP, troponin. She states that she took herself off 3 medications a few weeks ago. She states she took herself off propanolol, hydrochlorothiazide, lisinopril. I feel as though this might be the reason that her palpitations have returned. I discussed at length that the propanolol is a beta-willow that will help control palpitations and heart rate. I discussed return precautions to the emergency department including chest pain, shortness of breath for any acute concerns. Encouraged her to follow up her primary care provider in 2 days as she previously scheduled. <Génesis Garcia, DO - Last Filed: 01/30/18 20:08> Lab Data Lab Results 01/26/18 01/26/18 01/26/18 Range/Units 14:55 14:55 14:55 WBC 7.8 (4.5-11.0) X10^3/uL RBC 4.66 (4.0-5.2) X10^6/uL Hgb 15.2 (12.0-16.0) g/dL Hct 43.1 (36-46) % MCV 92.6 (80-100) fL MCH 32.7 (26-34) PG MCHC 35.4 (30-36) % RDW 13.0 (11.6-14.8) % Plt Count 205 (150-400) X10^3/uL Neut % (Auto) 63.3 (50-75) % Lymph % (Auto) 26.5 (25-40) % [place] % (Auto) 6.0 (3-14) % Eos % (Auto) 2.9 (2-4) % Baso % (Auto) 1.3 (0-2) % Neut # (Auto) 5000 (8464-7883) /uL PT (10.1-12.7) SECONDS INR (0.9-1.3) Sodium 143 (137-145) mmol/L Potassium 4.2 (3.4-5.1) mmol/L Chloride 105 (98-107) mmol/L Carbon Dioxide 26 (22-32) mmol/L BUN 16 (7-17) mg/dL Creatinine 0.90 (0.52-1.04) mg/dL Estimated GFR > 60.0 (>60) mL/min BUN/Creatinine Ratio 17.8 (6-22) Glucose 108 H (70-100) mg/dL Calcium 9.7 (8.4-10.2) mg/dL Total Bilirubin 0.4 (0.2-1.3) mg/dL AST 35 (14-36) IU/L ALT 33 (9-52) IU/L Alkaline Phosphatase 80 (38-126) U/L Total Creatine Kinase 51 (30-135) U/L Troponin I Cancelled < 0.012 Total Protein 7.1 (6.3-8.2) g/dL Albumin 4.2 (3.5-5.0) g/dL Globulin 2.9 (1.7-4.1) g/dL Albumin/Globulin Ratio 1.4 (1.0-2.8) 01/26/18 Range/Units 14:55 WBC (4.5-11.0) X10^3/uL RBC (4.0-5.2) X10^6/uL Hgb (12.0-16.0) g/dL Hct (36-46) % MCV (80-100) fL MCH (26-34) PG MCHC (30-36) % RDW (11.6-14.8) % Plt Count (150-400) X10^3/uL Neut % (Auto) (50-75) % Lymph % (Auto) (25-40) % [place] % (Auto) (3-14) % Eos % (Auto) (2-4) % Baso % (Auto) (0-2) % Neut # (Auto) (5263-3442) /uL PT 10.8 (10.1-12.7) SECONDS INR 1.0 (0.9-1.3) Sodium (137-145) mmol/L Potassium (3.4-5.1) mmol/L Chloride (98-107) mmol/L Carbon Dioxide (22-32) mmol/L BUN (7-17) mg/dL Creatinine (0.52-1.04) mg/dL Estimated GFR (>60) mL/min BUN/Creatinine Ratio (6-22) Glucose (70-100) mg/dL Calcium (8.4-10.2) mg/dL Total Bilirubin (0.2-1.3) mg/dL AST (14-36) IU/L ALT (9-52) IU/L Alkaline Phosphatase (38-126) U/L Total Creatine Kinase (30-135) U/L Troponin I Total Protein (6.3-8.2) g/dL Albumin (3.5-5.0) g/dL Globulin (1.7-4.1) g/dL Albumin/Globulin Ratio (1.0-2.8) Point of Care Testing Test Results Negative Urine Dip Bedside Urine Glucose Negative Bedside Urine Bilirubin - Negative Bedside Urine Ketone - Negative Urine Specific [place] 1.025 Bedside Urine Occult Blood - Negative Bedside Urine pH 6.0 Bedside Urine Protein - Negative Bedside Urine Urobilinogen - Negative Bedside Urine Nitrite - Negative Bedside Urine Leukocytes - Negative Esterase Discharge Plan Departure Patient Disposition: Home Clinical Impression: Heart palpitations, Hypertension Discharge Date/Time: 01/26/18 17:11 Interventions: ED Discharge Assessment Last Done: 01/26/18 17:11 Instructions: DI for High Blood Pressure, DI for Arrhythmias, DI for Palpitations Activity Restrictions/Additional Instructions: Please follow-up with the primary care provider as scheduled. Please do not take herself off medications without discussing them with your physician in the future. Please come back to the emergency department for any acute concerns of heart attack stroke or other emergent problems. Prescriptions: No Action inhalational spacing device [Aerochamber Plus Flow-Vu] spacer RF: 0 albuterol sulfate 90 mcg/actuation HFA aerosol inhaler 1 puff INHALATION Q4-6H PRN (Reason: shortness of breath) Qty: 6.7 RF: 0 ergocalciferol (vitamin D2) [Vitamin D2] 50,000 unit capsule 1 cap PO MOTH RF: 0 lisinopril 20 mg tablet 20 mg PO DAILY Qty: 30 RF: 0 Referrals: Xenia Wan ARNP [Primary Care Provider] - <Génesis Garcia DO - Last Filed: 01/30/18 20:08> Cosign ED Attending Cosignature Attestation: I was immediately available in the department for consultation. This documentation has been reviewed and I agree with assessment and plan. Supervised by Génesis Garcia,
[2018-01-26 15:12] LABS: Alanine Aminotransferase 33 IU/L (9-52); Albumin 4.2 g/dL (3.5-5.0); Albumin Globulin Ratio 1.4 (1.0-2.8); Alkaline Phosphatase 80 U/L (38-126); Aspartate Aminotransferase 35 IU/L (14-36); BUN Creatinine Ratio 17.8 (6-22); Bilirubin Total 0.4 mg/dL (0.2-1.3); Blood Urea Nitrogen 16 mg/dL (7-17); Calcium 9.7 mg/dL (8.4-10.2); Carbon Dioxide 26 mmol/L (22-32); Chloride 105 mmol/L (98-107); Creatine Kinase 51 U/L (30-135); Estimated Glomerular Filt Rate > 60.0 mL/min (>60); Globulin 2.9 g/dL (1.7-4.1); Glucose 108 mg/dL (70-100); HEMOLYSIS < 15 (0-50); Potassium 4.2 mmol/L (3.4-5.1); Sodium 143 mmol/L (137-145); Total Protein 7.1 g/dL (6.3-8.2)
[2018-01-26 15:26] LABS: Troponin I < 0.012 ng/mL (0.01-0.034)
--- NOTE | 2018-01-26 15:51 | ED_ITS ---
HPI - Arrhythmia/Palpitations <ANJUM Lundberg - Last Filed: 01/26/18 18:10> General Chief Complaint: Arrhythmia/Palpitations Stated Complaint: heart palpitations, high bp Time Seen by Provider: 01/26/18 14:41 Source: patient Mode of arrival: ambulatory Limitations: no limitations History of Present Illness HPI narrative: Patient presents with chief complaint palpitations that have been almost 10 times every day. She states she has 1-2 seconds of chest pain after each episode of palpitations. She states that the chest pain is shooting on the left side of her chest and radiates down her arm. She states that this only happens after palpitations. She denies any swelling of her extremities, lightheadedness dizziness, nausea vomiting fever diarrhea in her symptoms. She denies any syncope. She states that she was started on 3 to for medication several weeks ago by her primary care. She states that this was 2 to for blood pressure medications as well as 1 anti anxiety medication. However she stopped taking all 3 of them 1 week ago because she did not feel normal. She denies any headache. Related Data Home Medications Medication Instructions Recorded Confirmed inhalational spacing device 09/17/17 12/18/17 [Aerochamber Plus Flow-Vu] ergocalciferol (vitamin D2) 1 cap PO MOTH 12/18/17 12/18/17 [Vitamin D2] Previous Rx's Medication Instructions Recorded albuterol sulfate 1 puff INHALATION Q4-6H PRN #6.7 09/14/17 gram lisinopril 20 mg PO DAILY #30 tab 12/18/17 Allergies Allergy/AdvReac Type Severity Reaction Status Date / Time Penicillins [PENICILLINS] Allergy Unknown Hives Verified 10/11/17 16:15 Sulfa (Sulfonamide Allergy Unknown Hives Verified 10/11/17 16:15 Antibiotics) [SULFA (SULFONAMIDE ANTIBIOTICS)] Review of Systems <ANJUM Lundberg - Last Filed: 01/26/18 18:10> Review of Systems GENERAL: Denies chills, fatigue, malaise, fever, sweats. HEENT: Denies sinus pain, ear pain, sore throat, difficulty swallowing, dizziness. RESPIRATORY: Denies dyspnea, cough, wheezing, hemoptysis, sputum. CARDIOVASCULAR: See HPI GASTROINTESTINAL: Denies nausea, vomiting, abdominal pain, diarrhea, constipation, melena. : Denies dysuria, frequency, incontinence, hematuria, urinary retention. MUSCULOSKELETAL: denies weakness, joint pain, or bony pain SKIN: Denies rash, skin lesions, or other NEUROLOGIC: Denies weakness, headache, numbness, change in speech, confusion, seizures, incoordination. PSYCHIATRIC: No concerning psychosocial issues. 12 point review of systems is negative except for those stated above Exam <MIGUEL ANGEL Lundberg-BC - Last Filed: 01/26/18 18:10> Narrative Exam Narrative: GENERAL: This is a well-nourished, well-developed patient, lying on stretcher HEAD: Atraumatic. Normocephalic. No temporal or scalp tenderness. EYES: Pupils equal round and reactive. Extraocular motions intact. No scleral icterus. No injection or drainage. ENT: Nose without bleeding, purulent drainage or septal hematoma. Throat without erythema, tonsillar hypertrophy or exudate. Uvula midline. Airway patent. NECK: Trachea midline. No JVD or lymphadenopathy. Supple, nontender, no meningeal signs. CARDIOVASCULAR: Regular rate and rhythm without murmurs, gallops, or rubs. RESPIRATORY: Clear to auscultation. Breath sounds equal bilaterally. No wheezes , rales, or rhonchi. GASTROINTESTINAL: Abdomen soft, non-tender, nondistended. No hepato-splenomegaly , or palpable masses. No guarding. EXTREMITIES: No clubbing, cyanosis, or edema. No joint tenderness, effusion, or edema noted. BACK: Nontender without deformity or crepitance. No flank tenderness. NEURO: AOx3. SKIN: No rash or erythema. Initial Vital Signs Initial Vital Signs: Vital Signs Temperature 98.0 F 01/26/18 14:02 Pulse Rate 93 H 01/26/18 14:02 Respiratory Rate 18 01/26/18 14:02 Blood Pressure 172/110 H 01/26/18 14:02 Pulse Oximetry 100 01/26/18 14:02 <Génesis Garcia DO - Last Filed: 01/30/18 20:08> Initial Vital Signs Initial Vital Signs: Vital Signs Temperature 98.0 F 01/26/18 14:02 Pulse Rate 93 H 01/26/18 14:02 Respiratory Rate 18 01/26/18 14:02 Blood Pressure 172/110 H 01/26/18 14:02 Pulse Oximetry 100 01/26/18 14:02 Scores <ANJUM Lundberg - Last Filed: 01/26/18 18:10> HEART Score Heart Score history: Slightly Suspicious Heart Score EKG: Normal Heart Score Age: < 45 years old Heart Score risk factors: 1-2 risk factors Heart Score troponin: < or = to normal limit Heart Score Total: 1 PERC Score Age greater than or equal to 50 years: No Heart rate greater than or equal to 100 bpm: No Room Air O2 Sat less than 95%: No Unilateral leg swelling: No Recent trauma or surgery: No Hemoptysis: No Prior PE or DVT: No Hormone Use: No Total PERC Score: 0 Course <ANJUM Lundberg - Last Filed: 01/26/18 18:10> Orders Ordered: ED Orders 01/26/18 14:40 Chest [XR chest 2V] Stat 01/26/18 14:55 CBC [Complete Blood Count AUTO DIFF] Stat CMP [Comprehensive Metabolic Panel] Stat Prothrombin Time INR Stat Troponin & CK Cardiac Panel Stat Reevaluation(s) Reevaluation #1: Patient lying on stretcher. States she feels about the same. Patient is trying contact her mother to find out what medication she was supposed to be taking. Time: 16:20 Reevaluation #2: Patient states that she was supposed to be taking propanolol. Discussed at length that taking 1 self off propanolol can lead to palpitations as it is a beta-willow that helps control heart rate. Offered to keep patient for 2nd troponin rule out, but patient declined at this point time states that she wants to go home with PCP follow-up. Time: 16:50 Vital Signs - 8 hr 01/26/18 14:02 01/26/18 14:33 01/26/18 16:02 Temperature 98.0 F Pulse Rate 93 H 85 63 Respiratory Rate 18 24 22 Blood Pressure 172/110 H Blood Pressure [Right Arm] 164/99 H 142/99 H Pulse Oximetry 100 97 96 01/26/18 17:06 Temperature Pulse Rate 72 Respiratory Rate 14 Blood Pressure Blood Pressure [Right Arm] 131/95 H Pulse Oximetry 99 <Génesis Garcia DO - Last Filed: 01/30/18 20:08> Orders Ordered: ED Orders 01/26/18 14:40 Chest [XR chest 2V] Stat 01/26/18 14:55 CBC [Complete Blood Count AUTO DIFF] Stat CMP [Comprehensive Metabolic Panel] Stat Prothrombin Time INR Stat Troponin & CK Cardiac Panel Stat Vital Signs - 8 hr 01/26/18 14:02 01/26/18 14:33 01/26/18 16:02 Temperature 98.0 F Pulse Rate 93 H 85 63 Respiratory Rate 18 24 22 Blood Pressure 172/110 H Blood Pressure [Right Arm] 164/99 H 142/99 H Pulse Oximetry 100 97 96 01/26/18 17:06 Temperature Pulse Rate 72 Respiratory Rate 14 Blood Pressure Blood Pressure [Right Arm] 131/95 H Pulse Oximetry 99 MDM - Arrhythmia/Palpitations <MIGUEL ANGEL Lundberg-BC - Last Filed: 01/26/18 18:10> Differential Diagnosis Differential diagnosis: Likely palpitations, anxiety, sinus tachycardia, artial fibrillation and artial flutter Lab Data Result diagrams: 01/26/18 14:55 01/26/18 14:55 Lab Results 01/26/18 01/26/18 01/26/18 Range/Units 14:55 14:55 14:55 WBC 7.8 (4.5-11.0) X10^3/uL RBC 4.66 (4.0-5.2) X10^6/uL Hgb 15.2 (12.0-16.0) g/dL Hct 43.1 (36-46) % MCV 92.6 (80-100) fL MCH 32.7 (26-34) PG MCHC 35.4 (30-36) % RDW 13.0 (11.6-14.8) % Plt Count 205 (150-400) X10^3/uL Neut % (Auto) 63.3 (50-75) % Lymph % (Auto) 26.5 (25-40) % [place] % (Auto) 6.0 (3-14) % Eos % (Auto) 2.9 (2-4) % Baso % (Auto) 1.3 (0-2) % Neut # (Auto) 5000 (3007-8479) /uL PT (10.1-12.7) SECONDS INR (0.9-1.3) Sodium 143 (137-145) mmol/L Potassium 4.2 (3.4-5.1) mmol/L Chloride 105 (98-107) mmol/L Carbon Dioxide 26 (22-32) mmol/L BUN 16 (7-17) mg/dL Creatinine 0.90 (0.52-1.04) mg/dL Estimated GFR > 60.0 (>60) mL/min BUN/Creatinine Ratio 17.8 (6-22) Glucose 108 H (70-100) mg/dL Calcium 9.7 (8.4-10.2) mg/dL Total Bilirubin 0.4 (0.2-1.3) mg/dL AST 35 (14-36) IU/L ALT 33 (9-52) IU/L Alkaline Phosphatase 80 (38-126) U/L Total Creatine Kinase 51 (30-135) U/L Troponin I Cancelled < 0.012 Total Protein 7.1 (6.3-8.2) g/dL Albumin 4.2 (3.5-5.0) g/dL Globulin 2.9 (1.7-4.1) g/dL Albumin/Globulin Ratio 1.4 (1.0-2.8) // Range/Units 14:55 WBC (4.5-11.0) X10^3/uL RBC (4.0-5.2) X10^6/uL Hgb (12.0-16.0) g/dL Hct (36-46) % MCV (80-100) fL MCH (26-34) PG MCHC (30-36) % RDW (11.6-14.8) % Plt Count (150-400) X10^3/uL Neut % (Auto) (50-75) % Lymph % (Auto) (25-40) % [place] % (Auto) (3-14) % Eos % (Auto) (2-4) % Baso % (Auto) (0-2) % Neut # (Auto) (7577-8293) /uL PT 10.8 (10.1-12.7) SECONDS INR 1.0 (0.9-1.3) Sodium (137-145) mmol/L Potassium (3.4-5.1) mmol/L Chloride (98-107) mmol/L Carbon Dioxide (22-32) mmol/L BUN (7-17) mg/dL Creatinine (0.52-1.04) mg/dL Estimated GFR (>60) mL/min BUN/Creatinine Ratio (6-22) Glucose (70-100) mg/dL Calcium (8.4-10.2) mg/dL Total Bilirubin (0.2-1.3) mg/dL AST (14-36) IU/L ALT (9-52) IU/L Alkaline Phosphatase (38-126) U/L Total Creatine Kinase (30-135) U/L Troponin I Total Protein (6.3-8.2) g/dL Albumin (3.5-5.0) g/dL Globulin (1.7-4.1) g/dL Albumin/Globulin Ratio (1.0-2.8) Point of Care Testing Test Results Negative Urine Dip Bedside Urine Glucose Negative Bedside Urine Bilirubin - Negative Bedside Urine Ketone - Negative Urine Specific [place] 1.025 Bedside Urine Occult Blood - Negative Bedside Urine pH 6.0 Bedside Urine Protein - Negative Bedside Urine Urobilinogen - Negative Bedside Urine Nitrite - Negative Bedside Urine Leukocytes - Negative Esterase Imaging Data Chest x-ray: Radiologist's impression: [address] [address] XRay Report Signed Patient: Clau Barlow EMR#: [id number] : 1985Acct:[id number] Age/Sex: 32 / FDate of Service: 01/26/18 Loc: ED Accession Number: [id number] Procedure: XR chest 2V Ordering Provider: Génesis Cobb PROCEDURE: XR CHEST 2V INDICATIONS: chest pain/nausea TECHNIQUE: 2 views of the chest were acquired. COMPARISON: [facility], , XR CHEST 2V, 12/18/2017, 11:24. FINDINGS: Surgical changes and devices: None. Lungs and pleura: No pleural effusions or pneumothorax. Lungs are clear. Mediastinum: Mediastinal contours are normal. Heart size is normal. Bones and chest wall: No suspicious bony abnormalities. Soft tissues appear unremarkable. IMPRESSION: No acute cardiopulmonary disease process. Dictated by: Kira Davis MD, PhD on 01/26/2018 at 14:54 Approved by: Kira Davis MD, PhD on 01/26/2018 at 14:55 ECG Data Attestation: I personally reviewed and interpreted this ECG as follows: Prior ECG tracings: not available for review Interpretation: Sinus rhythm. Noted sinus arrhythmia. No ST elevation or depression. No ectopy noted. MDM Narrative Medical decision making narrative: Patient presents with chief complaint of palpitations and 1-2 seconds of chest pain after palpitations. Heart score and perc score were completed. Her EKG showed no acute abnormalities. She remained hemodynamically stable in the emergency department. She received and normal set of lab workup including CBC, CMP, troponin. She states that she took herself off 3 medications a few weeks ago. She states she took herself off propanolol, hydrochlorothiazide, lisinopril. I feel as though this might be the reason that her palpitations have returned. I discussed at length that the propanolol is a beta-willow that will help control palpitations and heart rate. I discussed return precautions to the emergency department including chest pain, shortness of breath for any acute concerns. Encouraged her to follow up her primary care provider in 2 days as she previously scheduled. <Génesis Garcia, DO - Last Filed: 01/30/18 20:08> Lab Data Lab Results 01/26/18 01/26/18 01/26/18 Range/Units 14:55 14:55 14:55 WBC 7.8 (4.5-11.0) X10^3/uL RBC 4.66 (4.0-5.2) X10^6/uL Hgb 15.2 (12.0-16.0) g/dL Hct 43.1 (36-46) % MCV 92.6 (80-100) fL MCH 32.7 (26-34) PG MCHC 35.4 (30-36) % RDW 13.0 (11.6-14.8) % Plt Count 205 (150-400) X10^3/uL Neut % (Auto) 63.3 (50-75) % Lymph % (Auto) 26.5 (25-40) % [place] % (Auto) 6.0 (3-14) % Eos % (Auto) 2.9 (2-4) % Baso % (Auto) 1.3 (0-2) % Neut # (Auto) 5000 (5615-0310) /uL PT (10.1-12.7) SECONDS INR (0.9-1.3) Sodium 143 (137-145) mmol/L Potassium 4.2 (3.4-5.1) mmol/L Chloride 105 (98-107) mmol/L Carbon Dioxide 26 (22-32) mmol/L BUN 16 (7-17) mg/dL Creatinine 0.90 (0.52-1.04) mg/dL Estimated GFR > 60.0 (>60) mL/min BUN/Creatinine Ratio 17.8 (6-22) Glucose 108 H (70-100) mg/dL Calcium 9.7 (8.4-10.2) mg/dL Total Bilirubin 0.4 (0.2-1.3) mg/dL AST 35 (14-36) IU/L ALT 33 (9-52) IU/L Alkaline Phosphatase 80 (38-126) U/L Total Creatine Kinase 51 (30-135) U/L Troponin I Cancelled < 0.012 Total Protein 7.1 (6.3-8.2) g/dL Albumin 4.2 (3.5-5.0) g/dL Globulin 2.9 (1.7-4.1) g/dL Albumin/Globulin Ratio 1.4 (1.0-2.8) 01/26/18 Range/Units 14:55 WBC (4.5-11.0) X10^3/uL RBC (4.0-5.2) X10^6/uL Hgb (12.0-16.0) g/dL Hct (36-46) % MCV (80-100) fL MCH (26-34) PG MCHC (30-36) % RDW (11.6-14.8) % Plt Count (150-400) X10^3/uL Neut % (Auto) (50-75) % Lymph % (Auto) (25-40) % [place] % (Auto) (3-14) % Eos % (Auto) (2-4) % Baso % (Auto) (0-2) % Neut # (Auto) (1841-9579) /uL PT 10.8 (10.1-12.7) SECONDS INR 1.0 (0.9-1.3) Sodium (137-145) mmol/L Potassium (3.4-5.1) mmol/L Chloride (98-107) mmol/L Carbon Dioxide (22-32) mmol/L BUN (7-17) mg/dL Creatinine (0.52-1.04) mg/dL Estimated GFR (>60) mL/min BUN/Creatinine Ratio (6-22) Glucose (70-100) mg/dL Calcium (8.4-10.2) mg/dL Total Bilirubin (0.2-1.3) mg/dL AST (14-36) IU/L ALT (9-52) IU/L Alkaline Phosphatase (38-126) U/L Total Creatine Kinase (30-135) U/L Troponin I Total Protein (6.3-8.2) g/dL Albumin (3.5-5.0) g/dL Globulin (1.7-4.1) g/dL Albumin/Globulin Ratio (1.0-2.8) Point of Care Testing Test Results Negative Urine Dip Bedside Urine Glucose Negative Bedside Urine Bilirubin - Negative Bedside Urine Ketone - Negative Urine Specific [place] 1.025 Bedside Urine Occult Blood - Negative Bedside Urine pH 6.0 Bedside Urine Protein - Negative Bedside Urine Urobilinogen - Negative Bedside Urine Nitrite - Negative Bedside Urine Leukocytes - Negative Esterase Discharge Plan Departure Patient Disposition: Home Clinical Impression: Heart palpitations, Hypertension Discharge Date/Time: 01/26/18 17:11 Interventions: ED Discharge Assessment Last Done: 01/26/18 17:11 Instructions: DI for High Blood Pressure, DI for Arrhythmias, DI for Palpitations Activity Restrictions/Additional Instructions: Please follow-up with the primary care provider as scheduled. Please do not take herself off medications without discussing them with your physician in the future. Please come back to the emergency department for any acute concerns of heart attack stroke or other emergent problems. Prescriptions: No Action inhalational spacing device [Aerochamber Plus Flow-Vu] spacer RF: 0 albuterol sulfate 90 mcg/actuation HFA aerosol inhaler 1 puff INHALATION Q4-6H PRN (Reason: shortness of breath) Qty: 6.7 RF: 0 ergocalciferol (vitamin D2) [Vitamin D2] 50,000 unit capsule 1 cap PO MOTH RF: 0 lisinopril 20 mg tablet 20 mg PO DAILY Qty: 30 RF: 0 Referrals: Xenia Wan ARNP [Primary Care Provider] - <Génesis Garcia DO - Last Filed: 01/30/18 20:08> Cosign ED Attending Cosignature Attestation: I was immediately available in the department for consultation. This documentation has been reviewed and I agree with assessment and plan. Supervised by Génesis Garcia,
[2018-01-26 16:02] VITALS: BP 142/99; PULSE 63; RESP 22; O2SAT 96
[2018-01-26 17:06] VITALS: BP 131/95; PULSE 72; RESP 14; O2SAT 99
== END 2018-01-26 17:11 | disposition home or self-care (01) ==
PROVIDERS: Emergency Provider Nurse Practitioner Family; PCP Nurse Practitioner Family
DX: R00.2 Palpitations (principal); I10 Essential (primary) hypertension
CPT/HCPCS: 36415; 71046; 80053; 81003; 81025; 82550; 82553; 84484; 85025; 85610; 93005; 93041; 99283; 99285

== ENCOUNTER → 2018-07-23 20:02 | Outpatient (CLI) | payer OTHER, MEDICAID, SELFPAY | PROVIDERS: PCP Nurse Practitioner Family; Visit Provider Physician Assistant | DX: J39.2 Other diseases of pharynx (principal) | CPT/HCPCS: 87070; 87077 ==

== ENCOUNTER → 2018-09-01 19:47 | Outpatient (CLI) | payer OTHER, MEDICAID, SELFPAY ==
--- NOTE | 2018-09-01 19:49 | DI.RAD.S_ITS ---
PROCEDURE: XR CHEST 2V INDICATIONS: cough TECHNIQUE: 2 views of the chest were acquired. COMPARISON: [facility], CR, XR CHEST 2V, 01/26/2018, 14:17. FINDINGS: Surgical changes and devices: None. Lungs and pleura: Lungs are clear. No pleural effusions or pneumothorax. Mediastinum: Mediastinal contours are normal. Heart size is normal. Bones and chest wall: No suspicious bony abnormalities. Soft tissues appear unremarkable. IMPRESSION: No acute cardiopulmonary disease process. Dictated by: Kira Davis MD, PhD on 09/01/2018 at 20:07 Approved by: Kira Davis MD, PhD on 09/01/2018 at 20:07
== END ==
PROVIDERS: PCP Nurse Practitioner Family; Visit Provider Physician Assistant
DX: R05 Cough (principal)
CPT/HCPCS: 71046

== ENCOUNTER 2018-10-19 14:51 | Emergency (ER) | payer OTHER, MEDICAID, SELFPAY ==
[2018-10-19] VITALS (12 sets, daily range): BP systolic 153–199; BP diastolic 96–142; PULSE 64–98; RESP 13–24; TEMP 36.6; O2SAT 96–100; BMI 36.3
--- NOTE | 2018-10-19 15:04 | DI.RAD.S_ITS ---
PROCEDURE: XR CHEST 1V INDICATIONS: chest pain / preg test pending. TECHNIQUE: One view of the chest was acquired. COMPARISON: [facility], CR, XR CHEST 2V, 09/01/2018, 19:52. FINDINGS: Surgical changes and devices: None. Lungs and pleura: Lungs are clear. No pleural effusions or pneumothorax. Mediastinum: Mediastinal contours appear normal. Heart size is normal. Bones and chest wall: No suspicious bony lesions. Overlying soft tissues appear unremarkable. IMPRESSION: No acute process. Dictated by: Filiberto Taylor M.D. on 10/19/2018 at 15:04 Approved by: Filiberto Taylor M.D. on 10/19/2018 at 15:04
--- NOTE | 2018-10-19 15:12 | PC.NURSE ---
reports chest tightness for couple of days, has been using inhaler , without relief. also with headaches. pt in the process of moving, states, has not taken blood preassure medications for 5 days, denies fever, vomiting, +diarrhea this morning, bowel has not been normal, food making it upsets, denies blood in stools.
[2018-10-19 15:24] LABS: INR 0.9 (0.9-1.3); Prothrombin Time 10.7 SECONDS (10.1-12.7)
[2018-10-19 15:27] LABS: PTT Partial Thromboplastin Tim 31 SECONDS (26.4-36.2)
[2018-10-19 15:28] LABS: Alanine Aminotransferase 61 IU/L (9-52); Albumin Globulin Ratio 1.4 (1.0-2.8); Alkaline Phosphatase 86 U/L (38-126); Aspartate Aminotransferase 64 IU/L (14-36); Bilirubin Total 0.6 mg/dL (0.2-1.3); Blood Urea Nitrogen 14 mg/dL (7-17); Calcium 9.3 mg/dL (8.4-10.2); Carbon Dioxide 26 mmol/L (22-32); Chloride 106 mmol/L (98-107); Creatine Kinase 40 U/L (30-135); Estimated Glomerular Filt Rate > 60.0 mL/min (>60); Globulin 2.9 g/dL (1.7-4.1); Glucose 108 mg/dL (70-100); HEMOLYSIS < 15 (0-50); Lipase 64 U/L (23-300); Potassium 3.8 mmol/L (3.4-5.1); Sodium 139 mmol/L (137-145); Total Protein 6.9 g/dL (6.3-8.2)
[2018-10-19 15:30] LABS: Add Manual Diff / Slide Review NO; Basophils Absolute Auto 100 /uL (0-100); Basophils Percent Auto 1.3 % (0-2); Eosinophils Absolute Auto 200 /uL (0-450); Eosinophils Percent Auto 2.2 % (2-4); Hematocrit 42.5 % (36-46); Hemoglobin 15.2 g/dL (12.0-16.0); Lymphocytes Absolute Auto 2600 /uL (1100-4500); Lymphocytes Percent Auto 29.7 % (25-40); Mean Corpuscular HGB Conc 35.7 % (30-36); Mean Corpuscular Hemoglobin 32.7 PG (26-34); Mean Corpuscular Volume 91.4 fL (80-100); Monocytes Absolute Auto 600 /uL (0-900); Monocytes Percent Auto 7.2 % (3-14); Neutrophils Absolute Auto 5200 /uL (1500-7000); Neutrophils Percent Auto 59.6 % (50-75); Platelet Count 203 X10^3/uL (150-400); Red Blood Cell Count 4.65 X10^6/uL (4.0-5.2); Red Cell Distribution Width 12.9 % (11.6-14.8); White Blood Cell Count 8.7 X10^3/uL (4.5-11.0)
[2018-10-19 15:40] LABS: Troponin I < 0.012 ng/mL (0.01-0.034)
--- NOTE | 2018-10-19 16:07 | ED.GENADULT ---
HPI - General Adult General Chief complaint: Hypertension Stated complaint: states high blood pressure and hard time breathing Time Seen by Provider: 10/19/18 16:06 Source: patient and old records reviewed Mode of arrival: ambulatory Limitations: no limitations History of Present Illness HPI narrative: 33-year-old female comes to the emergency department with complaint of high blood pressure. Patient states she sometimes feels like she has a hard time breathing feel as well as taking sort of a deep breath. She states she feels a little bit discomfort in her upper chest. Not really pressure, patient denies any nausea, no vomiting. She denies any abdominal pain. She had 2 episodes of diarrhea that started yellowish in color earlier today. No bright red blood or black in her stools. No urinary symptoms, patient has had a little bit headache. She assumed this was from her hypertension and came for evaluation. She has also had a little bit of swelling sometimes in her left leg that comes and goes with no clear obvious trauma. She has not had any long distance travel she is not on any oral contraceptives. She does not have any family history of blood clots. She does smoke tobacco, occasional alcohol and no illicit. She has not been taking her blood pressure medication because it is packed away for the last several days they are getting ready to move. Surgically she has had a tubal, x2 with basket retrieval for stone. A couple weeks ago she was told she had a stone in her salivary duct after being seen at urgent care. Related Data Home Medications Medication Instructions Recorded Confirmed inhalational spacing device 09/17/17 10/08/18 [Aerochamber Plus Flow-Vu] ergocalciferol (vitamin D2) 1 cap PO MOTH 12/18/17 10/08/18 [Vitamin D2] Previous Rx's Medication Instructions Recorded albuterol sulfate 1 puff INHALATION Q4-6H PRN #6.7 09/14/17 gram lisinopril 20 mg PO DAILY #30 tab 12/18/17 azithromycin 250 mg tablet See Rx Instructions PO .COMPLEX #6 10/08/18 tab lisinopril 20 mg PO DAILY #14 tab 10/19/18 Allergies Allergy/AdvReac Type Severity Reaction Status Date / Time Penicillins [PENICILLINS] Allergy Unknown Hives Verified 10/19/18 15:02 Sulfa (Sulfonamide Allergy Unknown Hives Verified 10/19/18 15:02 Antibiotics) [SULFA (SULFONAMIDE ANTIBIOTICS)] Review of Systems Review of Systems ROS Unobtainable: All systems reviewed & are unremarkable except as noted in HPI and below Constitutional Denies chills, Denies fever(s), Denies lethargy, Denies snoring and Denies weakness ENT Ears, Nose, Mouth, and Throat: Reports nasal congestion Cardiovascular Reports chest pain, Denies diaphoresis, Denies syncope, Denies rapid heart rate, Reports edema (Sometimes left), Denies irregular heart rhythm, Denies lightheadedness, Denies radiating jaw, neck or arm pain, Denies palpitations, Reports dyspnea, Denies dyspnea on exertion and Denies orthopnea Respiratory Denies change in phlegm color, Denies chest congestion, Denies cough, Denies hemoptysis, Denies excessive phlegm production, Reports dyspnea, Denies dyspnea on exertion, Denies snoring and Denies wheezing Gastrointestinal Gastrointestinal: Denies abdominal pain, Denies melena, Denies hematochezia, Denies change in bowel habits, Denies diarrhea, Denies nausea and Denies vomiting Genitourinary Denies hematuria, Denies urinary frequency, Denies dysuria, Denies flank pain, Denies urinary incontinence, Denies urinary hesitancy and Denies urinary urgency Musculoskeletal Denies back pain Integumentary/Breasts Denies rash Neurologic Denies syncope, Denies focal weakness, Denies paresthesias and Denies weakness Endocrine Denies palpitations Hematologic/Lymphatic Denies easy bruising and Denies other (Blood clot) Allergic/Immunologic Denies wheezing [facility] Surgical History History of extraction of renal calculus (Resolved) Status post delivery Status post tubal ligation Social History Smoking Status: Current every day smoker Social History (Updated 10/19/18 @ 16:26 by Génesis Garcia DO) Smoking Status: Current every day smoker alcohol intake: current substance use type: does not use Exam Narrative Exam Narrative: GENERAL: Alert and oriented x three, obese, well-appearing female in no acute distress. HEENT: Head normocephalic, atraumatic, EOMI, pupils reactive, face symmetric, moist mucous membranes NECK: Supple, full range of motion CARDIOVASCULAR: Regular rate and rhythm without murmurs, rubs or gallops. Nontender to palpation. No rashes or skin changes noted. RESPIRATORY: Breath sounds equal bilaterally, no wheezes rales or rhonchi. ABDOMEN: Soft, nontender. Normoactive bowel sounds all 4 quadrants. No guarding or rebound, rigidity, no mass : No CVA tenderness EXTREMITIES: Normal range of motion, no clubbing or edema. No swelling of the right versus left lower extremity. Nontender with palpation, negative Homans. Neurovascularly intact NEUROLOGICAL: Cranial nerves II through XII grossly intact. Moving all extremities SKIN: Warm, dry, no petechiae, no rashes or lesions. Initial Vital Signs Initial Vital Signs: Vital Signs Temperature 97.8 F 10/19/18 14:58 Pulse Rate 98 H 10/19/18 14:58 Respiratory Rate 18 10/19/18 14:58 Blood Pressure 153/109 H 10/19/18 14:58 Pulse Oximetry 98 10/19/18 14:58 Scores PERC Score Age greater than or equal to 50 years: No Heart rate greater than or equal to 100 bpm: No Room Air O2 Sat less than 95%: No Unilateral leg swelling: No (no visible swelling, happens occaionally) Recent trauma or surgery: No Hemoptysis: No Prior PE or DVT: No Hormone Use: No Total PERC Score: 0 Course Orders Ordered: ED Orders 10/19/18 15:03 EKG-12 Lead Stat 10/19/18 15:04 XR chest 1V Stat 10/19/18 15:10 Complete Blood Count AUTO DIFF Stat Comprehensive Metabolic Panel Stat D Dimer Stat Lipase Stat Partial Thromboplastin Time Stat Prothrombin Time INR Stat Troponin & CK Cardiac Panel Stat 10/19/18 16:21 US periph venous low extrem lt Stat Discontinued Medications Lisinopril (Zestril) 20 mg PO NOW ONE Stop: 10/19/18 16:23 Last Admin: 10/19/18 16:44 Dose: 20 mg Vital Signs - 8 hr 10/19/18 14:58 10/19/18 15:04 10/19/18 15:17 Temperature 97.8 F Pulse Rate 98 H 83 73 Respiratory Rate 18 13 17 Blood Pressure 153/109 H Blood Pressure [Left Arm] 199/108 H 171/117 H Pulse Oximetry 98 100 98 10/19/18 15:30 10/19/18 15:45 10/19/18 15:52 Temperature Pulse Rate 75 66 64 Respiratory Rate 16 20 24 Blood Pressure Blood Pressure [Left Arm] 154/96 H 178/96 H 171/110 H Pulse Oximetry 99 100 96 10/19/18 15:58 10/19/18 16:00 10/19/18 16:44 Temperature Pulse Rate 72 82 70 Respiratory Rate 15 18 Blood Pressure 163/108 H Blood Pressure [Left Arm] 175/99 H 167/142 H Pulse Oximetry 99 100 10/19/18 17:03 10/19/18 17:15 10/19/18 17:30 Temperature Pulse Rate 73 68 76 Respiratory Rate 19 17 13 Blood Pressure Blood Pressure [Left Arm] 176/115 H 169/110 H 167/109 H Pulse Oximetry 98 98 98 Medical Decision Making Lab Data Lab results reviewed: Yes I reviewed the patient's lab results. Result diagrams: 10/19/18 15:10 10/19/18 15:10 Lab Results 10/19/18 10/19/18 10/19/18 Range/Units 15:10 15:10 15:10 WBC 8.7 (4.5-11.0) X10^3/uL RBC 4.65 (4.0-5.2) X10^6/uL Hgb 15.2 (12.0-16.0) g/dL Hct 42.5 (36-46) % MCV 91.4 (80-100) fL MCH 32.7 (26-34) PG MCHC 35.7 (30-36) % RDW 12.9 (11.6-14.8) % Plt Count 203 (150-400) X10^3/uL Neut % (Auto) 59.6 (50-75) % Lymph % (Auto) 29.7 (25-40) % [place] % (Auto) 7.2 (3-14) % Eos % (Auto) 2.2 (2-4) % Baso % (Auto) 1.3 (0-2) % Neut # (Auto) 5200 (4524-2345) /uL Lymph # (Auto) 2600 (2025-7544) /uL [place] # (Auto) 600 (0-900) /uL Eos # (Auto) 200 (0-450) /uL Baso # (Auto) 100 (0-100) /uL PT 10.7 (10.1-12.7) SECONDS INR 0.9 (0.9-1.3) APTT 31 (26.4-36.2) SECONDS D-Dimer (<230) ng/mL Sodium 139 (137-145) mmol/L Potassium 3.8 (3.4-5.1) mmol/L Chloride 106 (98-107) mmol/L Carbon Dioxide 26 (22-32) mmol/L BUN 14 (7-17) mg/dL Creatinine 0.70 (0.52-1.04) mg/dL Estimated GFR > 60.0 (>60) mL/min BUN/Creatinine Ratio 20.0 (6-22) Glucose 108 H (70-100) mg/dL Calcium 9.3 (8.4-10.2) mg/dL Total Bilirubin 0.6 (0.2-1.3) mg/dL AST 64 H (14-36) IU/L ALT 61 H (9-52) IU/L Alkaline Phosphatase 86 (38-126) U/L Total Creatine Kinase 40 (30-135) U/L CK-MB (CK-2) TNP CK-MB (CK-2) Rel Index TNP Troponin I < 0.012 (0.01-0.034) ng/mL Total Protein 6.9 (6.3-8.2) g/dL Albumin 4.0 (3.5-5.0) g/dL Globulin 2.9 (1.7-4.1) g/dL Albumin/Globulin Ratio 1.4 (1.0-2.8) Lipase 64 (23-300) U/L 10/19/18 Range/Units 15:10 WBC (4.5-11.0) X10^3/uL RBC (4.0-5.2) X10^6/uL Hgb (12.0-16.0) g/dL Hct (36-46) % MCV (80-100) fL MCH (26-34) PG MCHC (30-36) % RDW (11.6-14.8) % Plt Count (150-400) X10^3/uL Neut % (Auto) (50-75) % Lymph % (Auto) (25-40) % [place] % (Auto) (3-14) % Eos % (Auto) (2-4) % Baso % (Auto) (0-2) % Neut # (Auto) (1948-9569) /uL Lymph # (Auto) (2261-6665) /uL [place]ill # (Auto) (0-900) /uL Eos # (Auto) (0-450) /uL Baso # (Auto) (0-100) /uL PT (10.1-12.7) SECONDS INR (0.9-1.3) APTT (26.4-36.2) SECONDS D-Dimer < 200 (<230) ng/mL Sodium (137-145) mmol/L Potassium (3.4-5.1) mmol/L Chloride (98-107) mmol/L Carbon Dioxide (22-32) mmol/L BUN (7-17) mg/dL Creatinine (0.52-1.04) mg/dL Estimated GFR (>60) mL/min BUN/Creatinine Ratio (6-22) Glucose (70-100) mg/dL Calcium (8.4-10.2) mg/dL Total Bilirubin (0.2-1.3) mg/dL AST (14-36) IU/L ALT (9-52) IU/L Alkaline Phosphatase (38-126) U/L Total Creatine Kinase (30-135) U/L CK-MB (CK-2) CK-MB (CK-2) Rel Index Troponin I (0.01-0.034) ng/mL Total Protein (6.3-8.2) g/dL Albumin (3.5-5.0) g/dL Globulin (1.7-4.1) g/dL Albumin/Globulin Ratio (1.0-2.8) Lipase (23-300) U/L Imaging Data Chest x-ray: Radiologist's impression: [address] [address] XRay Report Signed Patient: Clau Barlow EMR#: [id number] : 1985Acct:[id number] Age/Sex: te of Service: 10/19/18 Loc: ED Accession Number: [id number] Procedure: XR chest 1V Ordering Provider: Nissa Brady P.A-C PROCEDURE: XR CHEST 1V INDICATIONS: chest pain / preg test pending. TECHNIQUE: One view of the chest was acquired. COMPARISON: [facility], CR, XR CHEST 2V, 09/01/2018, 19:52. FINDINGS: Surgical changes and devices: None. Lungs and pleura: Lungs are clear. No pleural effusions or pneumothorax. Mediastinum: Mediastinal contours appear normal. Heart size is normal. Bones and chest wall: No suspicious bony lesions. Overlying soft tissues appear unremarkable. IMPRESSION: No acute process. Dictated by: Filiberto Taylor M.D. on 10/19/2018 at 15:04 Approved by: Filiberto Taylor M.D. on 10/19/2018 at 15:04 Lower extremity DVT ultrasound: Radiologist's impression: [address] [address] Ultrasound Report Signed Patient: Clau Barlow EMR#: [id number] : 1985Acct:[id number] Age/Sex: 33 / FDate of Service: 10/19/18 Loc: ED Accession Number: [id number] Procedure: periph venous low extrem lt Ordering Provider: Génesis Garcia D.O. PROCEDURE: US PERIPH VENOUS LOW EXTREM LT INDICATIONS: LEFT LEG PAIN, SWELLING SOMETIMES TECHNIQUE: Real-time imaging, as well as color and pulse Doppler interrogation, were performed of the lower extremity deep veins from the inguinal ligament to the popliteal fossa. COMPARISON: None. FINDINGS: The common femoral, femoral and popliteal veins are normally compressible, and free of intraluminal thrombus. Color and pulse Doppler demonstrate normal phasic intraluminal flow. There is normal augmentation response to distal compression maneuver. IMPRESSION: No evidence of left lower extremity DVT. Dictated by: Filiberto Taylor M.D. on 10/19/2018 at 16:15 Approved by: Filiberto Taylor M.D. on 10/19/2018 at 16:15 ECG Data Attestation: I personally reviewed and interpreted this ECG as follows: Prior ECG tracings: available for review Interpretation: sinus rhythm, rate of 81, pr 145, qrs 97, qtc 408. Sinus rhythm incomplete right bundle-branch block. Patient has prior EKG that appears similar to prior. Discharge Plan Departure Patient Disposition: Home Clinical Impression: Hypertension Discharge Date/Time: 10/19/18 17:43 Interventions: ED Discharge Assessment Last Done: 10/19/18 17:43 Instructions: DI for High Blood Pressure Activity Restrictions/Additional Instructions: Continue home medication as prescribed. I recommend following up with your primary care in the next week if her symptoms are not totally resolved. Feel the prescription for lisinopril and start taking it. Your prescription was sent to [facility] in [place]. Return to the emergency department for fevers greater 100.4 F, new chest pain, shortness of breath, lightheadedness or passing-out, persistent vomiting, black or bloody stools, worsening swelling, pain in her lower extremities or other new or concerning symptoms. Prescriptions: New lisinopril 20 mg tablet 20 mg PO DAILY Qty: 14 RF: 0 No Action azithromycin 250 mg tablet See Rx Instructions PO .COMPLEX Qty: 6 RF: 1 inhalational spacing device [Aerochamber Plus Flow-Vu] spacer RF: 0 albuterol sulfate 90 mcg/actuation HFA aerosol inhaler 1 puff INHALATION Q4-6H PRN (Reason: shortness of breath) Qty: 6.7 RF: 0 ergocalciferol (vitamin D2) [Vitamin D2] 50,000 unit capsule 1 cap PO MOTH RF: 0 lisinopril 20 mg tablet 20 mg PO DAILY Qty: 30 RF: 0 Referrals: Xenia Wan ARNP [Primary Care Provider] -
--- NOTE | 2018-10-19 16:10 | ED_ITS ---
HPI - General Adult General Chief complaint: Hypertension Stated complaint: states high blood pressure and hard time breathing Time Seen by Provider: 10/19/18 16:06 Source: patient and old records reviewed Mode of arrival: ambulatory Limitations: no limitations History of Present Illness HPI narrative: 33-year-old female comes to the emergency department with complaint of high blood pressure. Patient states she sometimes feels like she has a hard time breathing feel as well as taking sort of a deep breath. She states she feels a little bit discomfort in her upper chest. Not really pressure, patient denies any nausea, no vomiting. She denies any abdominal pain. She had 2 episodes of diarrhea that started yellowish in color earlier today. No bright red blood or black in her stools. No urinary symptoms, patient has had a little bit headache. She assumed this was from her hypertension and came for evaluation. She has also had a little bit of swelling sometimes in her left leg that comes and goes with no clear obvious trauma. She has not had any long distance travel she is not on any oral contraceptives. She does not have any family history of blood clots. She does smoke tobacco, occasional alcohol and no illicit. She has not been taking her blood pressure medication because it is packed away for the last several days they are getting ready to move. Surgically she has had a tubal, x2 with basket retrieval for stone. A couple weeks ago she was told she had a stone in her sa livary duct after being seen at urgent care. Related Data Home Medications Medication Instructions Recorded Confirmed inhalational spacing device 09/17/17 10/08/18 [Aerochamber Plus Flow-Vu] ergocalciferol (vitamin D2) 1 cap PO MOTH 12/18/17 10/08/18 [Vitamin D2] Previous Rx's Medication Instructions Recorded albuterol sulfate 1 puff INHALATION Q4-6H PRN #6.7 09/14/17 gram lisinopril 20 mg PO DAILY #30 tab 12/18/17 azithromycin 250 mg tablet See Rx Instructions PO .COMPLEX #6 10/08/18 tab lisinopril 20 mg PO DAILY #14 tab 10/19/18 Allergies Allergy/AdvReac Type Severity Reaction Status Date / Time Penicillins [PENICILLINS] Allergy Unknown Hives Verified 10/19/18 15:02 Sulfa (Sulfonamide Allergy Unknown Hives Verified 10/19/18 15:02 Antibiotics) [SULFA (SULFONAMIDE ANTIBIOTICS)] Review of Systems Review of Systems ROS Unobtainable: All systems reviewed & are unremarkable except as noted in HPI and below Constitutional Denies chills, Denies fever(s), Denies lethargy, Denies snoring and Denies weakness ENT Ears, Nose, Mouth, and Throat: Reports nasal congestion Cardiovascular Reports chest pain, Denies diaphoresis, Denies syncope, Denies rapid heart rate, Reports edema (Sometimes left), Denies irregular heart rhythm, Denies lightheadedness, Denies radiating jaw, neck or arm pain, Denies palpitations, Reports dyspnea, Denies dyspnea on exertion and Denies orthopnea Respiratory Denies change in phlegm color, Denies chest congestion, Denies cough, Denies hemoptysis, Denies excessive phlegm production, Reports dyspnea, Denies dyspnea on exertion, Denies snoring and Denies wheezing Gastrointestinal Gastrointestinal: Denies abdominal pain, Denies melena, Denies hematochezia, Denies change in bowel habits, Denies diarrhea, Denies nausea and Denies vomiting Genitourinary Denies hematuria, Denies urinary frequency, Denies dysuria, Denies flank pain, Denies urinary incontinence, Denies urinary hesitancy and Denies urinary urgency Musculoskeletal Denies back pain Integumentary/Breasts Denies rash Neurologic Denies syncope, Denies focal weakness, Denies paresthesias and Denies weakness Endocrine Denies palpitations Hematologic/Lymphatic Denies easy bruising and Denies other (Blood clot) Allergic/Immunologic Denies wheezing FOR[facility]LY [facility] Surgical History History of extraction of renal calculus (Resolved) Status post delivery Status post tubal ligation Social History Smoking Status: Current every day smoker Social History (Updated 10/19/18 @ 16:26 by Génesis Garcia DO) Smoking Status: Current every day smoker alcohol intake: current substance use type: does not use Exam Narrative Exam Narrative: GENERAL: Alert and oriented x three, obese, well-appearing female in no acute distress. HEENT: Head normocephalic, atraumatic, EOMI, pupils reactive, face symmetric, moist mucous membranes NECK: Supple, full range of motion CARDIOVASCULAR: Regular rate and rhythm without murmurs, rubs or gallops. Nontender to palpation. No rashes or skin changes noted. RESPIRATORY: Breath sounds equal bilaterally, no wheezes rales or rhonchi. ABDOMEN: Soft, nontender. Normoactive bowel sounds all 4 quadrants. No guarding or rebound, rigidity, no mass : No CVA tenderness EXTREMITIES: Normal range of motion, no clubbing or edema. No swelling of the right versus left lower extremity. Nontender with palpation, negative Homans. Neurovascularly intact NEUROLOGICAL: Cranial nerves II through XII grossly intact. Moving all extremities SKIN: Warm, dry, no petechiae, no rashes or lesions. Initial Vital Signs Initial Vital Signs: Vital Signs Temperature 97.8 F 10/19/18 14:58 Pulse Rate 98 H 10/19/18 14:58 Respiratory Rate 18 10/19/18 14:58 Blood Pressure 153/109 H 10/19/18 14:58 Pulse Oximetry 98 10/19/18 14:58 Scores PERC Score Age greater than or equal to 50 years: No Heart rate greater than or equal to 100 bpm: No Room Air O2 Sat less than 95%: No Unilateral leg swelling: No (no visible swelling, happens occaionally) Recent trauma or surgery: No Hemoptysis: No Prior PE or DVT: No Hormone Use: No Total PERC Score: 0 Course Orders Ordered: ED Orders 10/19/18 15:03 EKG-12 Lead Stat 10/19/18 15:04 XR chest 1V Stat 10/19/18 15:10 Complete Blood Count AUTO DIFF Stat Comprehensive Metabolic Panel Stat D Dimer Stat Lipase Stat Partial Thromboplastin Time Stat Prothrombin Time INR Stat Troponin & CK Cardiac Panel Stat 10/19/18 16:21 periph venous low extrem lt Stat Discontinued Medications Lisinopril (Zestril) 20 mg PO NOW ONE Stop: 10/19/18 16:23 Last Admin: 10/19/18 16:44 Dose: 20 mg Vital Signs - 8 hr 10/19/18 14:58 10/19/18 15:04 10/19/18 15:17 Temperature 97.8 F Pulse Rate 98 H 83 73 Respiratory Rate 18 13 17 Blood Pressure 153/109 H Blood Pressure [Left Arm] 199/108 H 171/117 H Pulse Oximetry 98 100 98 10/19/18 15:30 10/19/18 15:45 10/19/18 15:52 Temperature Pulse Rate 75 66 64 Respiratory Rate 16 20 24 Blood Pressure Blood Pressure [Left Arm] 154/96 H 178/96 H 171/110 H Pulse Oximetry 99 100 96 10/19/18 15:58 10/19/18 16:00 10/19/18 16:44 Temperature Pulse Rate 72 82 70 Respiratory Rate 15 18 Blood Pressure 163/108 H Blood Pressure [Left Arm] 175/99 H 167/142 H Pulse Oximetry 99 100 10/19/18 17:03 10/19/18 17:15 10/19/18 17:30 Temperature Pulse Rate 73 68 76 Respiratory Rate 19 17 13 Blood Pressure Blood Pressure [Left Arm] 176/115 H 169/110 H 167/109 H Pulse Oximetry 98 98 98 Medical Decision Making Lab Data Lab results reviewed: Yes I reviewed the patient's lab results. Result diagrams: 10/19/18 15:10 10/19/18 15:10 Lab Results 10/19/18 10/19/18 10/19/18 Range/Units 15:10 15:10 15:10 WBC 8.7 (4.5-11.0) X10^3/uL RBC 4.65 (4.0-5.2) X10^6/uL Hgb 15.2 (12.0-16.0) g/dL Hct 42.5 (36-46) % MCV 91.4 (80-100) fL MCH 32.7 (26-34) PG MCHC 35.7 (30-36) % RDW 12.9 (11.6-14.8) % Plt Count 203 (150-400) X10^3/uL Neut % (Auto) 59.6 (50-75) % Lymph % (Auto) 29.7 (25-40) % [place] % (Auto) 7.2 (3-14) % Eos % (Auto) 2.2 (2-4) % Baso % (Auto) 1.3 (0-2) % Neut # (Auto) 5200 (2716-5165) /uL Lymph # (Auto) 2600 (5861-4448) /uL [place] # (Auto) 600 (0-900) /uL Eos # (Auto) 200 (0-450) /uL Baso # (Auto) 100 (0-100) /uL PT 10.7 (10.1-12.7) SECONDS INR 0.9 (0.9-1.3) APTT 31 (26.4-36.2) SECONDS D-Dimer (<230) ng/mL Sodium 139 (137-145) mmol/L Potassium 3.8 (3.4-5.1) mmol/L Chloride 106 (98-107) mmol/L Carbon Dioxide 26 (22-32) mmol/L BUN 14 (7-17) mg/dL Creatinine 0.70 (0.52-1.04) mg/dL Estimated GFR > 60.0 (>60) mL/min BUN/Creatinine Ratio 20.0 (6-22) Glucose 108 H (70-100) mg/dL Calcium 9.3 (8.4-10.2) mg/dL Total Bilirubin 0.6 (0.2-1.3) mg/dL AST 64 H (14-36) IU/L ALT 61 H (9-52) IU/L Alkaline Phosphatase 86 (38-126) U/L Total Creatine Kinase 40 (30-135) U/L CK-MB (CK-2) TNP CK-MB (CK-2) Rel Index TNP Troponin I < 0.012 (0.01-0.034) ng/mL Total Protein 6.9 (6.3-8.2) g/dL Albumin 4.0 (3.5-5.0) g/dL Globulin 2.9 (1.7-4.1) g/dL Albumin/Globulin Ratio 1.4 (1.0-2.8) Lipase 64 (23-300) U/L 10/19/18 Range/Units 15:10 WBC (4.5-11.0) X10^3/uL RBC (4.0-5.2) X10^6/uL Hgb (12.0-16.0) g/dL Hct (36-46) % MCV (80-100) fL MCH (26-34) PG MCHC (30-36) % RDW (11.6-14.8) % Plt Count (150-400) X10^3/uL Neut % (Auto) (50-75) % Lymph % (Auto) (25-40) % [place] % (Auto) (3-14) % Eos % (Auto) (2-4) % Baso % (Auto) (0-2) % Neut # (Auto) (1838-9563) /uL Lymph # (Auto) (6274-3734) /uL [place] # (Auto) (0-900) /uL Eos # (Auto) (0-450) /uL Baso # (Auto) (0-100) /uL PT (10.1-12.7) SECONDS INR (0.9-1.3) APTT (26.4-36.2) SECONDS D-Dimer < 200 (<230) ng/mL Sodium (137-145) mmol/L Potassium (3.4-5.1) mmol/L Chloride (98-107) mmol/L Carbon Dioxide (22-32) mmol/L BUN (7-17) mg/dL Creatinine (0.52-1.04) mg/dL Estimated GFR (>60) mL/min BUN/Creatinine Ratio (6-22) Glucose (70-100) mg/dL Calcium (8.4-10.2) mg/dL Total Bilirubin (0.2-1.3) mg/dL AST (14-36) IU/L ALT (9-52) IU/L Alkaline Phosphatase (38-126) U/L Total Creatine Kinase (30-135) U/L CK-MB (CK-2) CK-MB (CK-2) Rel Index Troponin I (0.01-0.034) ng/mL Total Protein (6.3-8.2) g/dL Albumin (3.5-5.0) g/dL Globulin (1.7-4.1) g/dL Albumin/Globulin Ratio (1.0-2.8) Lipase (23-300) U/L Imaging Data Chest x-ray: Radiologist's impression: [address] [address] XRay Report Signed Patient: Clau Barlow EMR#: [id number] : 1985Acct:[id number] Age/Sex: te of Service: 10/19/18 Loc: ED Accession Number: [id number] Procedure: XR chest 1V Ordering Provider: Nissa Brady P.A-C PROCEDURE: XR CHEST 1V INDICATIONS: chest pain / preg test pending. TECHNIQUE: One view of the chest was acquired. COMPARISON: [facility], CR, XR CHEST 2V, 09/01/2018, 19:52. FINDINGS: Surgical changes and devices: None. Lungs and pleura: Lungs are clear. No pleural effusions or pneumothorax. Mediastinum: Mediastinal contours appear normal. Heart size is normal. Bones and chest wall: No suspicious bony lesions. Overlying soft tissues appear unremarkable. IMPRESSION: No acute process. Dictated by: Filiberto Taylor M.D. on 10/19/2018 at 15:04 Approved by: Filiberto Taylor M.D. on 10/19/2018 at 15:04 Lower extremity DVT ultrasound: Radiologist's impression: [address] [address] Ultrasound Report Signed Patient: Clau Barlow EMR#: [id number] : 1985Acct:[id number] Age/Sex: 33 / FDate of Service: 10/19/18 Loc: ED Accession Number: [id number] Procedure: perip venous low extrem lt Ordering Provider: Génesis Garcia D.O. PROCEDURE: US PERIPH VENOUS LOW EXTREM LT INDICATIONS: LEFT LEG PAIN, SWELLING SOMETIMES TECHNIQUE: Real-time imaging, as well as color and pulse Doppler interrogation, were performed of the lower extremity deep veins from the inguinal ligament to the popliteal fossa. COMPARISON: None. FINDINGS: The common femoral, femoral and popliteal veins are normally compressible, and free of intraluminal thrombus. Color and pulse Doppler demonstrate normal phasic intraluminal flow. There is normal augmentation response to distal compression maneuver. IMPRESSION: No evidence of left lower extremity DVT. Dictated by: Filiberto Taylor M.D. on 10/19/2018 at 16:15 Approved by: Filiberto Taylor M.D. on 10/19/2018 at 16:15 ECG Data Attestation: I personally reviewed and interpreted this ECG as follows: Prior ECG tracings: available for review Interpretation: sinus rhythm, rate of 81, pr 145, qrs 97, qtc 408. Sinus rhythm incomplete right bundle-branch block. Patient has prior EKG that appears similar to prior. Discharge Plan Departure Patient Disposition: Home Clinical Impression: Hypertension Discharge Date/Time: 10/19/18 17:43 Interventions: ED Discharge Assessment Last Done: 10/19/18 17:43 Instructions: DI for High Blood Pressure Activity Restrictions/Additional Instructions: Continue home medication as prescribed. I recommend following up with your primary care in the next week if her symptoms are not totally resolved. Feel the prescription for lisinopril and start taking it. Your prescription was sent to [facility] in [place]. Return to the emergency department for fevers greater 100.4 F, new chest pain, shortness of breath, lightheadedness or passing-out, persistent vomiting, black or bloody stools, worsening swelling, pain in her lower extremities or other new or concerning symptoms. Prescriptions: New lisinopril 20 mg tablet 20 mg PO DAILY Qty: 14 RF: 0 No Action azithromycin 250 mg tablet See Rx Instructions PO .COMPLEX Qty: 6 RF: 1 inhalational spacing device [Aerochamber Plus Flow-Vu] spacer RF: 0 albuterol sulfate 90 mcg/actuation HFA aerosol inhaler 1 puff INHALATION Q4-6H PRN (Reason: shortness of breath) Qty: 6.7 RF: 0 ergocalciferol (vitamin D2) [Vitamin D2] 50,000 unit capsule 1 cap PO MOTH RF: 0 lisinopril 20 mg tablet 20 mg PO DAILY Qty: 30 RF: 0 Referrals: Xenia Wan ARNP [Primary Care Provider] -
--- NOTE | 2018-10-19 16:21 | DI.US.S_ITS ---
PROCEDURE: US PERIPH VENOUS LOW EXTREM LT INDICATIONS: LEFT LEG PAIN, SWELLING SOMETIMES TECHNIQUE: Real-time imaging, as well as color and pulse Doppler interrogation, were performed of the lower extremity deep veins from the inguinal ligament to the popliteal fossa. COMPARISON: None. FINDINGS: The common femoral, femoral and popliteal veins are normally compressible, and free of intraluminal thrombus. Color and pulse Doppler demonstrate normal phasic intraluminal flow. There is normal augmentation response to distal compression maneuver. IMPRESSION: No evidence of left lower extremity DVT. Dictated by: Filiberto Taylor M.D. on 10/19/2018 at 16:15 Approved by: Filiberto Taylor M.D. on 10/19/2018 at 16:15
[2018-10-19 16:33] LABS: D Dimer < 200 ng/mL (<230)
[2018-10-19] MEDS: LISINOPRIL 20 MG TABLET PO (16:44)
== END 2018-10-19 17:43 | disposition home or self-care (01) ==
PROVIDERS: Internal Medicine; Emergency Provider Emergency Medicine; PCP Nurse Practitioner Family
DX: I10 Essential (primary) hypertension (principal); R07.9 Chest pain, unspecified
CPT/HCPCS: 36415; 71045; 80053; 82550; 83690; 84484; 85025; 85379; 85610; 85730; 93005; 93971; 99284; 99285